=== PATIENT | male | born 1940 | race Caucasian/White ===

== ENCOUNTER 2023-06-01 09:03 | Emergency (ER) | payer BC, SELFPAY ==
[2023-06-01 09:05] VITALS: BP 158/95
--- NOTE | 2023-06-01 09:25 | ED.GENMED ---
History of Present Illness
General
Chief Complaint: Fall
Source: patient
Time Seen by Provider: 06/01/23 09:19
Travel History
Have you had any contact with someone who has COVID-19?: No
Do you have any symptoms of coronavirus? Fever > 100 degrees, chills, cough, shortness of breath, sore throat, loss of taste or smell, muscle aches, or headache?: No
History of Present Illness
History of Present Illness:
82-year-old male with past medical history of hypertension hyperlipidemia presenting to the emergency department for evaluation after an accidental trip and fall 4 days ago where he injured on his left upper leg and complaining of mildly improving
pain/discomfort however he states due to the continued nature of symptoms wanted to come to the ER to be further evaluated. Patient denies any other injuries. He notes that he ambulates with a walker due to gait imbalance as well as a history of a
left hip replacement and chronic right knee pain. Denies any head injury, loss consciousness, other extremity related injuries or any other concerns.
Past History
Past History
ED Past Medical History: HTN and Hypercholesterolemia
ED Past Surgical History: Orthopedic (L hip surg), Tonsilectomy and Other (Testicle removed as child)
Social History
Tobacco: Non-smoker
Alcohol: Occasional
Drug: None
Personal:
Living: with family
Employment: Employed
Review of Systems
Review of Systems
All Other Systems: ROS reviewed and negative except as documented in HPI and ROS
Phy Exam
Physical Exam
Physical Exam:
GENERAL: Alert , in no apparent distress, pleasant and well-appearing
EYE: conjunctiva clear
Head: Normocephalic atraumatic
NECK: Supple,
ENT: mmm.
LUNGS: no acute respiratory distress
NEUROLOGICAL: Alert and oriented
SKIN: Warm and dry, skin intact.
MUSCULOSKELETAL: Left lower extremity: No obvious deformity, erythema, edema, ecchymosis, abrasions or lacerations. There is mild tenderness along the proximal and lateral aspect of the thigh but patient allows for full active and passive range of
motion with minimal discomfort. Neurovascularly intact. Remainder of extremities are within normal limits.
PSYCH: Normal and appropriate interaction.
Scores
Heart Failure Risk
Heart Failure Risk Score: Not Applicable
Heart Score for Chest Pain Patients
STEMI patient?: Not applicable
Withdrawal Assessment of Alcohol
Withdrawal Assessment Completed?: Not applicable
Course
Orders/Labs/Results
Orders:
Orders
06/01/23 09:23
CR Hip - LT w/wo Pel 2-3 Vw* Urgent
Comment:
Reason For Exam: fall, pain
Include a pelvis x-ray?: Yes
Vital Signs
Initial and Last Documented VS:
Initial Vital Signs
Temp Pulse Resp BP Pulse Ox
98.6 F 91 20 158/95 98
06/01/23 09:05 06/01/23 09:05 06/01/23 09:05 06/01/23 09:05 06/01/23 09:05
Last Documented Vital Signs
Temp Pulse Resp BP Pulse Ox
98.6 F 91 20 158/95 98
06/01/23 09:05 06/01/23 09:05 06/01/23 09:05 06/01/23 09:05 06/01/23 09:05
MDM/Problems Addressed
Differential Diagnosis Includes:
Contusion, sprain, pelvic fracture, given patient has been ambulatory over the 4 days I do not have concern for femur fracture
MDM/Problems Addressed:
82-year-old male presenting to the emergency department for evaluation after an accidental trip and fall resulting in injury to the left hip. Patient has been ambulatory with his walker since then but notes continued discomfort. Will obtain x-ray
to evaluate for possible fracture. Patient is declining anything for pain at this time. Anticipate discharge home following imaging
*Radiology
Radiology exam reviewed: preliminary read by ED provider (Negative for any fracture or complication with prosthesis)
*Pulse Oximetry
Patient hypoxic: no
*Critical Care Note
Total Time (30-74mins, 75-104mins- exclusive of procedures): Not Applicable
Patient Management
Escalation/DeEscalation of care consider admission/obs:
Patient's x-ray unremarkable. Stable for discharge home and outpatient management. Aware of return precautions.
ED Attending Note
-
Portions of this chart may have been created with voice recognition software.� Occasional wrong word or��sound alike� substitutions may have occurred due to the inherent limitations of voice recognition software.
Discharge Plan
Departure
Patient Disposition: Home (Routine Discharge)
Date of Disposition: 06/01/23
Time of Disposition: :
Patient with high blood pressure during this ER visit?: Yes
Discharge Problem:
Accidental fall, Hip pain, left
Instructions: Hip Pain (DC)
Prescriptions:
No Action
atorvastatin 10 MG tablet
10 mg PO QPM
lisinopril 20 MG tablet
20 mg PO DAILY
meloxicam 7.5 MG tablet
15 mg PO PRN PRN (Reason: pain)
aspirin 81 MG tablet,chewable
81 mg PO DAILY
meclizine 25 MG tablet
25 mg PO Q8HPRN PRN (Reason: nausea or vertigo) Qty: 10 0RF
prednisone 50 MG tablet
50 mg PO DAILY Qty: 7 0RF
oseltamivir 75 MG capsule
75 mg PO BID Qty: 9 0RF
albuterol sulfate [Proventil HFA] 90 MCG/PUFF HFA aerosol inhaler
2 puff inhalation Q4HPRN PRN (Reason: shortness of breath/cough) Qty: 1 0RF
codeine-guaifenesin [Guaiatussin AC] 10 ML liquid
10 ml PO Q6HPRN PRN (Reason: cough) Qty: 100 0RF
meclizine 25 mg tablet
25 mg PO TID PRN (Reason: dizziness) Qty: 12 0RF
Referrals:
Adiel Felder MD [Active] - (Ortho - Call for appointment as needed)
Noam Tse MD [Family Provider] -
Interventions
Interventions:
*Risk Screen - Suicide Last Done: 06/01/23 10:10
*General Assessment Last Done: 06/01/23 10:10
*Neglect/Abuse Screening Last Done: 06/01/23 10:10
ED- Fall Risk Assessment Last Done: 06/01/23 10:41
*ED COVID-19 Vaccine History Last Done: 06/01/23 09:05
*Nursing Disposition Last Done: 06/01/23 10:41
ED-Musculoskeletal Assessment Last Done: 06/01/23 10:10
ED- Neurological Assessment Last Done: 06/01/23 10:10
ED-Skin Assessment Last Done: 06/01/23 10:10
Discharge Date and Time
Discharge Date/Time: 06/01/23 10:41
== END 2023-06-01 10:41 | disposition home or self-care (01) ==
LOC: EMR 09:03
PROVIDERS: EMERGENCY PHYSICIAN Emergency Medicine; FAMILY PHYSICIAN Internal Medicine Geriatric Medicine
DX: M25.552 Pain in left hip (principal); W01.0XXA Fall on same level from slipping, tripping and stumbling without subsequent striking against object, initial encounter; I10 Essential (primary) hypertension; E78.00 Pure hypercholesterolemia, unspecified
CPT/HCPCS: 99283; 73502

== ENCOUNTER 2023-09-27 09:56 | Inpatient (IN) | payer MEDICARE, BC, SELFPAY ==
[2023-09-27] VITALS (22 sets, daily range): BP systolic 110–233; BP diastolic 83–210; BMI 36.9; BMI 36.0
--- NOTE | 2023-09-27 08:26 | ED.GENMED ---
History of Present Illness
<Malik Palma Jr., PA-C - Last Filed: 09/27/23 09:58>
General
Chief Complaint: Breathing Problem
Source: patient and spouse
Exam Limitations: none
Time Seen by Provider: 09/27/23 08:17
Nursing documentation reviewed up to this point in time: agreed with
Travel History
Have you had any contact with someone who has COVID-19?: No
Do you have any symptoms of coronavirus? Fever > 100 degrees, chills, cough, shortness of breath, sore throat, loss of taste or smell, muscle aches, or headache?: No
History of Present Illness
History of Present Illness:
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 Denies any
specific pain but is having trouble catching his breath. Denies any history of breathing issues lung issues or heart issues. Has had chronic swelling to the left lower extremity from his neuropathy but denies any history of blood clots any recent
trauma surgery immobilization. No known cancer history
Past History
<Malik Palma Jr., PA-C - Last Filed: 09/27/23 09:58>
Past History
ED Past Medical History: HTN and Hypercholesterolemia
ED Past Surgical History: Orthopedic (L hip surg), Tonsilectomy and Other (Testicle removed as child)
Social History
Tobacco: Non-smoker
Alcohol: Occasional
Drug: None
Personal:
Living: with family
Employment: Employed
Review of Systems
<Malik Palma Jr., PA-C - Last Filed: 09/27/23 09:58>
Review of Systems
Allergies reviewed?: Yes
All Other Systems: ROS reviewed and negative except as documented in HPI and ROS
Phy Exam
<Malik Palma Jr., PA-C - Last Filed: 09/27/23 09:58>
Physical Exam
Physical Exam:
GENERAL: Alert , in no apparent distress
EYE: pupils equal and reactive
NECK: Supple, no significant adenopathy.
ENT: o/p clr, mmm.
CARDIAC: Regular rate and rhythm .
LUNGS: C slightly diminished lung sounds to the left side but otherwise good air movement on the right side no adventitious sounds
ABDOMEN: Soft, without focal tenderness, no r/g, no cvat
NEUROLOGICAL: Alert and oriented, no focal neuro deficits
SKIN: Warm and dry, skin intact.
MUSCULOSKELETAL: No edema, well perfused.
PSYCH: Normal and appropriate interaction.
Scores
<Malik Palma Jr., PA-C - Last Filed: 09/27/23 09:58>
Heart Failure Risk
Heart Failure Risk Score: Not Applicable
Course
<Malik Palma Jr., PA-C - Last Filed: 09/27/23 09:58>
Orders/Labs/Results
Orders:
Orders
09/27/23 08:15
ECG [Electrocardiogram (*1)] Urgent
Reason for Study: Tachycardia
EKG- Treatment ONCE
09/27/23 08:21
CT Chest Pe Study Urgent
Comment:
Reason For Exam: sob left leg swelling
CR Chest Portable - 1 View Stat
Comment:
Reason For Exam: sob, hypoxemic
Reason Study Needs to be Portable: Patient Unstable
09/27/23 08:22
EKG- Treatment ONCE
09/27/23 08:27
Complete Blood Count/With Diff Urgent
Comprehensive Metabolic Panel Urgent
NT-proBNP Urgent
PTT Urgent
Prothrombin Time Urgent
Troponin I Urgent
09/27/23 08:56
Heparin 9,300 units IV NOW STA
Nursing to Place Non Medication Order As Directed
Physician Order: PTT 6 hours after initial start of Heparin infusion
Above order entered?: Yes
09/27/23 09:00
Heparin [id number] Units/250 ml 25,000 units in 250 ml IV PER PROTOCOL
Weight to be used for heparin protocol in kilograms (kg):: 116.8
Protocol:: DVT/PE
PTT Goal Range to be used:: PTT 73 to 111 seconds
Order type:: Initial
INITIAL Infusion Dose (UNITS/KG/hr) & then follow protocol:: 18 units/kg/hr
Infusion Dose in UNITS/hr & then follow protocol (UNITS/hr):: 2,000
INFUSION RATE in mL/hr & then follow protocol (mL/hr):: 20
For DVT/PE algorithm, re-bolus for low PTT?: Yes
PTT less than or equal to 64 seconds:: Re-bolus 80 units/kg (max 10,000units). Increase by 500 units/hr
(+ 5mL/hr)
PTT 64.1 to 72.9 seconds:: Re-bolus 40 units/kg (max 5,000 units). Increase by 200 units/hr
(+ 2mL/hr)
PTT 73 to 111 seconds:: Target Range. No change in rate.
PTT 111.1 to 130.9 seconds:: Decrease rate by 200 units/hr (- 2 mL/hr)
PTT 131 to 199.9 seconds:: HOLD for 1 hr. Then decrease by 400 units/hr (- 4mL/hr)
PTT greater than or equal to 200 seconds:: HOLD for 2 hrs & Notify Provider. Then decrease by 500 units/hr
(- 5mL/hr)
Lab follow-up:: Each change, PTT q6h until 2 consecutive are therapeutic. Then
PTT daily.
09/27/23 09:01
Heparin 4,700 units IV PRN PRN
Heparin 9,300 units IV PRN PRN
09/27/23 09:39
Admit/Transfer Patient As Directed
Co-Sign Provider:
Level of Care: Inpatient admission
Assign to:: ICU
Physician / Group: Dr. Edouard Issa/Hospitalists
Diagnosis: Pulmonary Embolism
Reason for Hospitalization: Pulmonary Embolism, Hypoxia
Expected length of stay greater than two midnights?: Yes
ELOS- Estimated Length of Stay in days: 3
I certify the patient meets the requirements for IP care: Yes
09/27/23 09:41
Code Status As Directed
Resuscitation Status: Full Code
09/27/23 09:46
US Periph Venous LOWER Ext Andrew Urgent
Comment:
Reason For Exam: DVT?
09/27/23 09:48
Echo 2D MMode Color/Doppler Routine
Reason for Study: Saddle Pulmonary Embolism
09/27/23 09:51
IRAD CONSULT Routine
Consulting Provider: Jose D Zheng
Was physician already notified: Yes
Reason for Consult/Procedure: Saddle Pulmonary Embolism
Acknowledgement that appropriate orders are entered: Yes
09/27/23 09:52
Manager Business Management Consult Routine
Consulting Provider: Negra William
Was physician already notified: Yes
Reason for consult: Saddle Pulmonary Embolism
09/27/23 15:00
PTT Urgent
Abnormal Lab Results
09/27/23
08:27
WBC 11.1 H 10^3/uL
(4.8-10.8)
MCV 96.3 H fL
(80.0-94.0)
MCH 33.6 H pg
(27.0-31.0)
Abs Immat Gran (auto) 0.1 H 10^3/uL
(0-0.05)
Absolute Neuts (auto) 8.3 H 10^3/uL
(1.4-6.5)
Absolute Monos (auto) 0.9 H 10^3/uL
(0.1-0.6)
Immature Gran % 0.6 H %
(0-0.5)
Lymphocytes % 16.1 L %
(20.5-51.1)
Creatinine 0.6 L mg/dL
(0.7-1.3)
Glucose 161 H mg/dl
(70-99)
Total Bilirubin 1.6 H mg/dl
(0.2-1.3)
Alkaline Phosphatase 152 H U/L
(38-126)
Troponin I 0.101 H* ng/ml
09/27/23 08:27
09/27/23 08:27
Vital Signs
Initial and Last Documented VS:
Initial Vital Signs
Temp Pulse Resp BP Pulse Ox
98.0 F 165 28 171/124 85
09/27/23 08:12 09/27/23 08:12 09/27/23 08:12 09/27/23 08:12 09/27/23 08:12
Last Documented Vital Signs
Temp Pulse Resp BP Pulse Ox
98.0 F 119 15 136/102 95
09/27/23 08:12 09/27/23 09:30 09/27/23 09:30 09/27/23 09:30 09/27/23 09:30
<Domenico Snow MD - Last Filed: 09/27/23 09:09>
Orders/Labs/Results
Orders:
Orders
09/27/23 08:15
ECG [Electrocardiogram (*1)] Urgent
Reason for Study: Tachycardia
EKG- Treatment ONCE
09/27/23 08:21
CT Chest Pe Study Urgent
Comment:
Reason For Exam: sob left leg swelling
CR Chest Portable - 1 View Stat
Comment:
Reason For Exam: sob, hypoxemic
Reason Study Needs to be Portable: Patient Unstable
09/27/23 08:22
EKG- Treatment ONCE
09/27/23 08:27
Complete Blood Count/With Diff Urgent
Comprehensive Metabolic Panel Urgent
NT-proBNP Urgent
PTT Urgent
Prothrombin Time Urgent
Troponin I Urgent
09/27/23 08:56
Heparin 9,300 units IV NOW STA
Nursing to Place Non Medication Order As Directed
Physician Order: PTT 6 hours after initial start of Heparin infusion
Above order entered?: Yes
09/27/23 09:00
Heparin [id number] Units/250 ml 25,000 units in 250 ml IV PER PROTOCOL
Weight to be used for heparin protocol in kilograms (kg):: 116.8
Protocol:: DVT/PE
PTT Goal Range to be used:: PTT 73 to 111 seconds
Order type:: Initial
INITIAL Infusion Dose (UNITS/KG/hr) & then follow protocol:: 18 units/kg/hr
Infusion Dose in UNITS/hr & then follow protocol (UNITS/hr):: 2,000
INFUSION RATE in mL/hr & then follow protocol (mL/hr):: 20
For DVT/PE algorithm, re-bolus for low PTT?: Yes
PTT less than or equal to 64 seconds:: Re-bolus 80 units/kg (max 10,000units). Increase by 500 units/hr
(+ 5mL/hr)
PTT 64.1 to 72.9 seconds:: Re-bolus 40 units/kg (max 5,000 units). Increase by 200 units/hr
(+ 2mL/hr)
PTT 73 to 111 seconds:: Target Range. No change in rate.
PTT 111.1 to 130.9 seconds:: Decrease rate by 200 units/hr (- 2 mL/hr)
PTT 131 to 199.9 seconds:: HOLD for 1 hr. Then decrease by 400 units/hr (- 4mL/hr)
PTT greater than or equal to 200 seconds:: HOLD for 2 hrs & Notify Provider. Then decrease by 500 units/hr
(- 5mL/hr)
Lab follow-up:: Each change, PTT q6h until 2 consecutive are therapeutic. Then
PTT daily.
09/27/23 09:01
Heparin 4,700 units IV PRN PRN
Heparin 9,300 units IV PRN PRN
09/27/23 09:39
Admit/Transfer Patient As Directed
Co-Sign Provider:
Level of Care: Inpatient admission
Assign to:: ICU
Physician / Group: Dr. Edouard Issa/Hospitalists
Diagnosis: Pulmonary Embolism
Reason for Hospitalization: Pulmonary Embolism, Hypoxia
Expected length of stay greater than two midnights?: Yes
ELOS- Estimated Length of Stay in days: 3
I certify the patient meets the requirements for IP care: Yes
09/27/23 09:41
Code Status As Directed
Resuscitation Status: Full Code
09/27/23 09:46
US Periph Venous LOWER Ext Andrew Urgent
Comment:
Reason For Exam: DVT?
09/27/23 09:48
Echo 2D MMode Color/Doppler Routine
Reason for Study: Saddle Pulmonary Embolism
09/27/23 09:51
IRAD CONSULT Routine
Consulting Provider: Jose D Zheng
Was physician already notified: Yes
Reason for Consult/Procedure: Saddle Pulmonary Embolism
Acknowledgement that appropriate orders are entered: Yes
09/27/23 09:52
Manager Business Management Consult Routine
Consulting Provider: Negra William
Was physician already notified: Yes
Reason for consult: Saddle Pulmonary Embolism
09/27/23 15:00
PTT Urgent
Abnormal Lab Results
09/27/23
08:27
WBC 11.1 H 10^3/uL
(4.8-10.8)
MCV 96.3 H fL
(80.0-94.0)
MCH 33.6 H pg
(27.0-31.0)
Abs Immat Gran (auto) 0.1 H 10^3/uL
(0-0.05)
Absolute Neuts (auto) 8.3 H 10^3/uL
(1.4-6.5)
Absolute Monos (auto) 0.9 H 10^3/uL
(0.1-0.6)
Immature Gran % 0.6 H %
(0-0.5)
Lymphocytes % 16.1 L %
(20.5-51.1)
Creatinine 0.6 L mg/dL
(0.7-1.3)
Glucose 161 H mg/dl
(70-99)
Total Bilirubin 1.6 H mg/dl
(0.2-1.3)
Alkaline Phosphatase 152 H U/L
(38-126)
Troponin I 0.101 H* ng/ml
09/27/23 08:27
09/27/23 08:27
Vital Signs
Initial and Last Documented VS:
Initial Vital Signs
Temp Pulse Resp BP Pulse Ox
98.0 F 165 28 171/124 85
09/27/23 08:12 09/27/23 08:12 09/27/23 08:12 09/27/23 08:12 09/27/23 08:12
Last Documented Vital Signs
Temp Pulse Resp BP Pulse Ox
98.0 F 119 15 136/102 95
09/27/23 08:12 09/27/23 09:30 09/27/23 09:30 09/27/23 09:30 09/27/23 09:30
<Malik Palma Jr., PA-C - Last Filed: 09/27/23 09:58>
MDM/Problems Addressed
MDM/Problems Addressed:
82-year-old male presenting to the emergency department today for concerns of abrupt onset shortness of breath 2 hours ago at home. Denies any chest pain or additional symptoms otherwise. Otherwise felt well this morning. Heart rate elevated upon
arrival but sinus tachycardia. Blood pressure elevated to 171/124. Patient with no additional symptoms otherwise on exam able to speak in full sentences when using the nasal cannula oxygen. Nasal cannula improving pulse ox to the mid 90s was in
the 80s without oxygen. Patient does have some swelling to the left leg where he has chronic neuropathy. Concern for PE considering the patient's description of symptoms and exam. Chest x-ray was normal and EKG without obvious ischemic or cardiac
diagnosis patient was sent to CT scan for PE study that showed saddle embolus. A PERT alert was called immediately and discussed pulmonary within the a few minutes. Case then discussed with interventional radiology the possibility of intervention.
Otherwise patient remained stable throughout ER stay admitted to ICU. Patient started on heparin as well.
<Malik Palma Jr., PA-C - Last Filed: 09/27/23 09:58>
*Critical Care Note
Total Time (30-74mins, 75-104mins- exclusive of procedures): Not Applicable
ED Attending Note
<Malik Palma Jr., PA-C - Last Filed: 09/27/23 09:58>
-
Portions of this chart may have been created with voice recognition software.� Occasional wrong word or��sound alike� substitutions may have occurred due to the inherent limitations of voice recognition software.
<Domenico Snow MD - Last Filed: 09/27/23 09:09>
ED Attending Note
Patient seen and examined by attending physician: Yes
ED Attending Note:
I have seen and evaluated the patient with a [id number] encounter. I have spoken to the advance practicer provider and involved in the medical history, the physical exam, medical decision making.
Evaluation and management service: agree unless noted differently below.
Results interpretation: agree unless noted differently below.
Focused HPI: 82-year-old male with a past medical history of hypertension, hyperlipidemia who presents to the emergency room for evaluation of shortness of breath. Patient reports he was drinking his coffee this morning and when he stood up he had
acute onset of shortness of breath. He denies any chest pain. Denies any nausea, vomiting, diaphoresis. He denies any other complaints. He says he has never had this before. Denies any known cardiac history.
Physical exam: Awake and alert, oriented. Mildly hypertensive, tachycardic heart rates 130s to 160s. Tachypneic, hypoxic to 85% requiring 6 L nasal cannula to maintain saturations above 90. Normothermic. Breath sounds slightly diminished at the
left lung base. Lungs otherwise clear to auscultation bilaterally. He has some slight discoloration left lower extremity compared to the right only trace edema in the legs. No cardiac rubs gallops or murmurs appreciated although markedly
tachycardic.
Medical Decision Making: Patient presents with acute onset dyspnea this morning�presents severely tachycardic, tachypneic, hypoxic. Presentation concerning for acute pulmonary embolism. We performed a stat portable chest x-ray which was negative
for any acute pathology on my review. EKG shows sinus tachycardia. Sent for a stat CTA of the chest to rule out PE and this was positive for saddle embolism with heart strain. PERT alert called. Started on heparin. Discussed with pulmonology
and IR for thrombolysis. Discussed with hospitalist for admission.
Discharge Plan
Departure
Patient Disposition: Admit
Date of Disposition: 09/27/23
Time of Disposition: 09:20
Admit to: ICU
Admit to doctor: Maegan
Presentation/result/management discussed w/ accepting MD/DO: Hospitalist
Patient with high blood pressure during this ER visit?: Yes
Condition: Fair
Covid-19: Not Applicable
Discharge Problem:
Acute pulmonary embolism, Acute hypoxic respiratory failure
Prescriptions:
No Action
lisinopril 20 MG tablet
20 mg PO DAILY
aspirin 81 MG tablet,chewable
81 mg PO DAILY
atorvastatin [Lipitor] 40 mg Tablet
40 mg PO DAILY
garlic 300 mg Capsule
300 mg PO DAILY
meloxicam [Mobic] 15 mg Tablet
15 mg PO DAILY
cyanocobalamin (vitamin B-12) 1,000 mcg Tablet
1,000 mcg PO DAILY
Theragen Tablet
1 tab PO DAILY
coQ10 (ubiquinol) 100 mg Capsule
100 mg PO DAILY
Referrals:
Noam Tse MD [Family Provider] -
Interventions
Interventions:
*Risk Screen - Suicide Last Done: 09/27/23 08:23
*General Assessment Last Done: 09/27/23 08:23
*Neglect/Abuse Screening Last Done: 09/27/23 08:23
ED- Fall Risk Assessment Last Done: 09/27/23 08:23
*ED COVID-19 Vaccine History Last Done: 09/27/23 08:12
ED- Cardiac Assessment Last Done: 09/27/23 08:23
ED- Pulmonary Assessment Last Done: 09/27/23 08:23
Discharge Date and Time
Print Language: TURKISH
--- NOTE | 2023-09-27 08:39 | EDRN ---
the pt is currently resting in stretcher in the lowest position, side rails up x2, HOB elevated, call cintron within reach, the pt is currently NST in the 150's, the pt is currently on 6L NC which the pt was placed on when he arrived to ED Bed #12 from
triage, the pts p02 on 6L NC is currently 93%, Carmelo JONES and Dr. Snow currently at the pts bedside
[2023-09-27 08:41] LABS: % Basophils 0.4 % (0-2); % Eosinophils 0.8 % (0-6); % Immature Granulocytes 0.6 % (0-0.5); % Lymphocytes 16.1 % (20.5-51.1); % Monocytes 7.7 % (1.7-9.3); % Neutrophils 74.4 % (42.2-75.2); Absolute Eosinophils 0.1 10^3/uL (0-0.7); Absolute Immature Granulocytes 0.1 10^3/uL (0-0.05); Absolute Lymphocytes 1.8 10^3/uL (1.2-3.4); Absolute Monocytes 0.9 10^3/uL (0.1-0.6); Absolute Neutrophils 8.3 10^3/uL (1.4-6.5); Hematocrit 49.9 % (39.0-52.0); Hemoglobin 17.4 g/dL (13.0-18.0); Mean Corp Hgb Conc. 34.9 g/dL (33.0-37.0); Mean Corpuscular Hgb 33.6 pg (27.0-31.0); Mean Corpuscular Volume 96.3 fL (80.0-94.0); Mean Platelet Volume 10.3 fL (7.4-10.4); Nucleated Red Blood Cells % 0 % (-); Platelet Count 148 10^3/uL (130-400); Red Blood Cell Count 5.18 10^6/uL (4.70-6.10); Red Cell Dist. Width 13.7 % (11.5-14.5); White Blood Cell Count 11.1 10^3/uL (4.8-10.8)
[2023-09-27 08:48] LABS: ALT (SGPT) 36 U/L (0-50); AST (SGOT) 38 U/L (17-59); Albumin 4.4 g/dl (3.5-5.0); Alkaline Phosphatase 152 U/L (38-126); Blood Urea Nitrogen 20 mg/dl (9-20); Calcium 9.3 mg/dl (8.4-10.2); Carbon Dioxide 24 mmol/L (22-30); Chloride 103 mmol/L (98-107); Estimated Creatinine Clearance 122 ml/min; Glucose 161 mg/dl (70-99); Potassium 4.4 mmol/L (3.5-5.1); Sodium 137 mmol/L (135-145); Total Bilirubin 1.6 mg/dl (0.2-1.3); Total Protein 7.4 g/dl (6.3-8.2); eGFR > 60.00
[2023-09-27 09:03] LABS: NT-proBNP 128 pg/ml; Troponin I 0.101 ng/ml
[2023-09-27] MEDS: HEPARIN 9300 UNITS IV (09:04)
[2023-09-27] MEDS: HEPARIN 25000 UNITS/250 ML IV (09:06)
--- NOTE | 2023-09-27 09:09 | EDRN ---
troponin came back elevated at 0.101, this RN notified the provider Dr. Snow, this RN with the assistance of second RN adam Bergman Heparin gtt at 2000 units/hour, the pt is resting in stretcher in the lowest position, side rails up x2, call cintron
within reach, HOB elevated, sinus tachycardic in the 120's, the pt is currently still on 6L NC and sp02 is 96%, pt RR now 17bpm, will continue to monitor the pt closely
[2023-09-27 09:13] LABS: APTT 27.3 Sec (23.4-35.0); INR 1.07; PT 13.7 Sec (11.4-14.6)
--- NOTE | 2023-09-27 09:13 | ED TECH ---
A PERT ALERT was called #[id number]# @08:56 AM Per {[facility]}.
--- NOTE | 2023-09-27 09:46 | HPS.HSE ---
Family Physician
-
Family Physician: Noam Tse
Chief Complaint
-
Shortness of breath
History of Present Illness
82 y/o male with past medical history of hypertension, hyperlipidemia, vitamin B12 deficiency and left lower extremity neuropathy presented with shortness of breath since around 6 AM this morning. Patient said he ate breakfast and was watching TV
and around that time developed shortness of breath. He denied any fever, chest pain or cramping in his legs. He denied any other symptoms. This is the first time he has had shortness of breath like this.
Medical History
Past Medical History
Past Medical History: Reports Other (As per HPI above)
Past Surgical History: Reports Orthopedic (Carpal Tunnel Syndrome, Left Hip Replacement, Testicle Removal) and Tonsilectomy
Social History
Tobacco: Non-smoker
Alcohol: Occasional
Drug: None
Family History
Family History: Not pertinent
Allergies / Home Medications
Allergies reflects when Allergies were last updated in [employer].
Home Medications with original date entered in [employer]
Allergy/Medication List:
Allergies
Allergy/AdvReac Type Severity Reaction Status Date / Time
NKA - No Known Allergies Allergy Unknown Uncoded 09/27/23 08:14
Home Medications
aspirin 81 mg chewable tablet 81 mg PO DAILY 07/10/16
lisinopril 20 mg tablet 20 mg PO DAILY 07/10/16
atorvastatin 40 mg tablet (Lipitor) 40 mg PO DAILY 09/27/23
coQ10 (ubiquinol) 100 mg capsule 100 mg PO DAILY 09/27/23
cyanocobalamin (vitamin B-12) 1,000 mcg tablet 1,000 mcg PO DAILY 09/27/23
garlic 300 mg capsule 300 mg PO DAILY 09/27/23
meloxicam 15 mg tablet 15 mg PO DAILY 09/27/23
therapeutic multivitamin 1 tab PO DAILY 09/27/23
Review of Systems
-
A 12 point ROS was completed and negative except as noted: Yes
Physical Exam
Vital Signs
Vital Signs
Temp Pulse Resp BP Pulse Ox
98.0 F 119 15 136/102 95
09/27/23 08:12 09/27/23 09:30 09/27/23 09:30 09/27/23 09:30 09/27/23 09:30
Physical Exam
General: No Apparent Distress, Comfortable and Conversant
HEENT: NormoCephalic, Moist mucous membranes and Atraumatic
Respiratory: Clear
Cardiac: S1/S2 and Tachycardia
GI: Soft, Non Tender and Normal Bowel Sounds
Musculoskeletal: No Cyanosis and No Edema
Skin: Warm and Dry
Neuro: Awake, Alert and AO x 3
Psych: Calm and Intact Judgment/Insight
Laboratory Results
-
09/27/23 08:27
09/27/23 08:27
Laboratory Results
PT 13.7 Sec (11.4-14.6) 09/27/23 08:27
INR 1.07 09/27/23 08:27
APTT Cancelled 09/27/23 08:56
Total Bilirubin 1.6 mg/dl (0.2-1.3) H 09/27/23 08:27
AST 38 U/L (17-59) 09/27/23 08:27
ALT 36 U/L (0-50) 09/27/23 08:27
Alkaline Phosphatase 152 U/L (38-126) H 09/27/23 08:27
Troponin I 0.101 ng/ml H* 09/27/23 08:27
Impression/Plan
-
Assessment/Plan
Large saddle pulmonary embolus with evidence of right heart strain
Acute Hypoxic Respiratory Failure Secondary to Pulmonary Embolism
-Heparin Drip started in the ER with initial bolus; continue Heparin Drip DVT/PE protocol
-Monitor in ICU
-Continue oxygen supplementation to maintain SpO2 saturations >90%
-IV fluids if becomes hemodynamically unstable
-IR intends to perform thrombectomy today
-Business System Manager on-board, recommendations appreciated
Severe coronary arterial calcification
-Follow-up outpatient
Hypertension
-Patient took his Lisinopril this morning
-Continue home Lisinopril tomorrow
Hyperlipidemia
-Continue home Lipitor 40 mg daily
LLE neuropathy
Vitamin B12 deficiency (as per patient)
-Patient says he sees a neurologist outpatient for this
-Continue home Vitamin B12
DVT PPx: Heparin Drip
Code Status: Full Code
Saddle Pulmonary Embolism needing ICU admission, thrombectomy by interventional radiology, and Heparin Drip, is a high-risk encounter.
--- NOTE | 2023-09-27 10:32 | EDRN ---
IR called this RN for verbal report, verbal report given by this RN
--- NOTE | 2023-09-27 10:35 | EDRN ---
the pt is currently still resting in stretcher in the lowest position, side rails up x2, call cintron within reach, HOB elevated, the pt is currently still sinus tachycardic in the 112-115-'s, last BP 122/83 (96), the pt is currently still on 6L NC
Sp02 95%, the pt is no longer tachypnic and RR currently 16bpm, the pt has no c/o SOB at the moment and no c/o chest pain, will continue to monitor the pt closely
--- NOTE | 2023-09-27 12:16 | CARDSERVLU ---
Echocardiogram with Lumason completed after protocol screening completed. Allergies verified.
Patent IV site: __existing 20P LAC___
IV site flushed with 0.9% NaCl pre and post administration.
Diluted bolus method utilized to enhance visualization of ventricular negrete.
Total volume given: __4.5__ mL
Patient tolerated all procedures well without complications.
--- NOTE | 2023-09-27 12:28 | CON.INTV ---
Consultation
Consultation Request
Date/Time Consultation Requested: 09/27/23
Date/Time Consultation Performed: 09/29/20
Performing Provider: Stewart
Reason for Consultation: ICU
Medical History
-
History of Present Illness:
Patient is an 82-year-old male with previous history of hypertension, hyperlipidemia presenting to ER with shortness of breath since earlier this a.m. he had noticed left lower extremity swelling as well. He does admit to sedentary behavior at
home. Denies long distance traveling, recent surgery. Has never had VTE in the past. On arrival to ER, he was notably hypoxemic, 85% on room air placed on [address] chest demonstrating large saddle PE with evidence of right heart
strain. PERT alert was called, patient appears more comfortable with improving vital signs. Decision made to maintain IV heparin without tPA, observation tonight.
No history of lung disease in past. Never smoker.
Past Medical History
Past Medical History: Other (see list below)
Social History
Tobacco: Non-smoker
Alcohol: None
Drug: None
Family History
Family History: Reviewed & Not Pertinent
Allergies / Home Medications
Allergies
Allergy/AdvReac Type Severity Reaction Status Date / Time
NKA - No Known Allergies Allergy Unknown Uncoded 09/27/23 08:14
Home Medications
�Medication �Instructions �Recorded �Confirmed �Last Taken �Type
aspirin 81 mg chewable tablet 81 mg PO DAILY Blood Clot 07/10/16 09/27/23 09/27/23 History
Prevention/Tx
lisinopril 20 mg tablet 20 mg PO DAILY Blood Pressure 07/10/16 09/27/23 09/27/23 History
atorvastatin 40 mg tablet (Lipitor) 40 mg PO DAILY High Cholesterol 09/27/23 09/27/23 09/27/23 History
coQ10 (ubiquinol) 100 mg capsule 100 mg PO DAILY Supplement 09/27/23 09/27/23 09/26/23 History
cyanocobalamin (vitamin B-12) 1,000 mcg PO DAILY Supplement 09/27/23 09/27/23 09/26/23 History
1,000 mcg tablet
garlic 300 mg capsule 300 mg PO DAILY Supplement 09/27/23 09/27/23 09/26/23 History
meloxicam 15 mg tablet 15 mg PO DAILY Pain 09/27/23 09/27/23 09/27/23 History
therapeutic multivitamin 1 tab PO DAILY Supplement 09/27/23 09/27/23 09/26/23 History
Review of Systems
-
History Source: Patient
All other systems: Negative unless noted
Vitals / Labs / Diagnostic Testing
Vital Signs
Temp Pulse Resp BP Pulse Ox
98.2 F 102 11 122/95 95
09/27/23 10:16 09/27/23 11:30 09/27/23 11:30 09/27/23 11:30 09/27/23 11:30
Lab Data
09/27/23 08:27
09/27/23 08:27
Laboratory Results
09/27/23 09/27/23
08:27 08:56
PT 13.7
INR 1.07
APTT 27.3 Cancelled
Diagnostic Testing:
Physical Exam
-
HEENT: Normocephalic, Anicteric and Moist Mucous Membranes
Cardiovascular: S1/S2 and Regular Rhythm
Respiratory: Clear and Non-Labored Respirations
GI: Soft, Distended (obese) and Non Tender
Neurology: Awake, Alert, Oriented, AO x 3 and No Motor Deficits
Skin: Warm, Dry and Good Color
General: Comfortable and Other (NAD, obese)
Assessment
-
Patient is an 82-year-old male with previous history of hypertension, hyperlipidemia presenting to ER with shortness of breath since earlier this a.m. he had noticed left lower extremity swelling as well. On arrival to ER, he was notably
hypoxemic, 85% on room air placed on [address] chest demonstrating large saddle PE with evidence of right heart strain. PERT alert was called, patient appears more comfortable with improving vital signs. Decision made to maintain IV
heparin without tPA, observation tonight. Admitted to ICU.
Large saddle PE, provoked likely/sedentary behavior
Evidence of RHS with moderate PH
Acute hypoxic respiratory failure
Mild leukocytosis
Left lower extremity swelling
Hyperglycemia
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
Hyperlipidemia
HTN
Arthritis
B/L Carpal tunnel release
Hip replacement(1999)
Tonsillectomy
Cataracts 08/2021
Bilateral S1 TFESI 02/08/2022
LT S1 TFESI NO SED 07.07.2022
LT SI JOINT INJ NO SED 08/03/23
Ambulatory dysfunction with falls at home
Obesity, BMI 36
Plan
No current signs of metabolic encephalopathy or MS changes/following commands
Denies pain at this time.
Pain/sedation: PRN
RASS goals: 0
Ambulatory issues, eventual PT eval
Hemodynamically stable, not requiring pressors.
Cardiac history reviewed-- HTN/HLD
ECHO reviewed indicating evidence of RHS with moderate PH, no baseline test
Hold home meds, resume when able
Trend enzymes
Monitor on telemetry, HR improved since heparin IV started
CT Chest showing large saddle PE, possible LLE DVT as well
PERT called, improving vitals, can hold off on tPA
IR eval noted
Oxygen needs: on 6L, O2 alvin in 80s on arrival
Prior history of lung disease: none, nonsmoker
Does have risk factors for OSAS, would need OP sleep study
Supplemental O2 as indicated to maintain sats > 89%
CXR/CT reviewed
Diet advancement
LFT somewhat elevated, suspect fatty liver
Aspiration precautions, HOB > 30 degrees
GI prophylaxis if indicated for mechanical ventilation >48 hours, prior history of GERD, stress ulcer formation in the critically ill
Creat at baseline, no history of renal disease
Void trials
Follow urine output, critical I/Os
Replete electrolytes as needed
No signs/symptoms suspicious for infectious etiology at this time
Observe off antibiotics for now
Follow fever trend, WBC count
CBC stable, no signs of bleeding or coagulopathy.
DVT prophylaxis as assessed based on risk, including mechanical SCDs
Can transfuse if indicated for Hb <7, plt < 10
No prior h/o diabetes or thyroid disease, hyperglycemia noted
Monitor accuchecks PRN/SS coverage if needed
Check TSH/HbA1c
If doing well, no tPA planned, can transfer patient for further treatment for IMU. We will follow.
Diagnostic Data
Chest X-Ray: 09/27/23- 1. Mild cardiomegaly.
2. Grossly clear lungs.
CT Scan: CTA 09/27/23- 1. Large saddle pulmonary embolus, extending into both main, segmental, and subsegmental pulmonary arteries as detailed above.
2. Evidence of right heart strain. RV: LV ratio measures 1.6.
3. Severe coronary arterial calcification. Please correlate with symptoms of and risk factors for coronary artery disease, with further workup as clinically appropriate.
CT Chest 07/06/19- Thoracic aorta is tortuous, but without evidence for aneurysm. No acute CT findings in the chest. Minimal bibasilar partial atelectasis or scarring. Extensive coronary arterial calcifications.
Echo: 09/27/23- Technically difficult study - Lumason used. Dilated and severely hypokinetic right ventricle with Torres's sign seen in apical views. Moderate tricuspid regurgitation. Estimated PASP 48 mmHg with estimated RA 3 mmHg. Normal LV
size and function. No prior study available for comparison. CT scan showed RV strain as well.
PFT's:
Reports and relevant images were personally reviewed.
-----
Critical care time 77 mins -- this includes review of history, physical exam, medications, hemodynamic/ventilator parameters, laboratory data, imaging and discussion with house staff, pharmacy, respiratory therapy, salvage mechanic, and nursing.
Coordination of team via PERT Alert protocol time included.
--- NOTE | 2023-09-27 13:24 | W.PN.UPDATE ---
Update Note
Progress Note Update
- 82 year old found to have submassive PE, IR consulted for catheter directed therapy
- Presented to ER hypoxic and tachycardic. RV strain on CT with elevated troponin
- CT reviewed. Saddle component with occlusive/nonocclusive clot within the segment and subsegmental arteries
- Pt started on heparin. Says he's feeling better on heparin/O2, non-toxic appearing
- Would not recommend thrombectomy given the more peripheral nature of his clot. Options are continued heparin vs catheter directed thrombolysis with tPA
- Given advanced age, improvement on heparin, rec continued heparin overnight. If continues to improve do not think he needs intervention. Will follow.
[2023-09-27 15:53] LABS: TSH 4.57 uIU/ml (0.47-4.68)
[2023-09-27 15:54] LABS: APTT > 200 Sec (23.4-35.0)
--- NOTE | 2023-09-27 16:48 | PTCARENOTE ---
Received patient on admission from ED via stretcher with heparin drip infusing at 2,000 units/hr. Patient able to transfer self from bed to stretcher but was ALY. Patient received with 6l n/c; POx decreased to 88% on transfer then recovered.
Currently 94-95% on 6L n/c but dyspneic on minimal exertion. PTT drawn in ED prior to arrival and resulted >200. Confirmed with ED RN that blood was not drawn from line/arm with heparin infusing. Infusion on hold for 2hrs per protocol with restart
to be decreased by 500 units/hr, and notified Dr Issa via tiger text. BP 145/102 on arrival. Patient confirmed he took his lisinopril this morning. Dr Abbasi made aware; instructed to watch bp for now. Current BP 138/99. See worklist for full
assessment, vital signs, admission questions and heparin titration.
[2023-09-27 17:01] LABS: Troponin I 0.497 ng/ml
--- NOTE | 2023-09-27 20:24 | PTCARENOTE ---
Received pt from [facility]. Pt is AAOx3. NSR on the monitor, trace LE edema. On 6L NC O2 sat 94%, lungs clear, ALY/ tachypneic. Heparin gtt infusing @ 1500 unit/hr. Mouth care provided. Pt is laying comfortable in bed with call cintron in reach.
[2023-09-27 23:23] LABS: APTT 76.6 Sec (23.4-35.0)
[2023-09-28] VITALS (15 sets, daily range): BP systolic 117–176; BP diastolic 75–115
[2023-09-28 00:01] LABS: Troponin I 0.326 ng/ml
[2023-09-28] MEDS: HEPARIN 25000 UNITS/250 ML IV ×2 (01:28→18:05)
[2023-09-28 04:46] LABS: % Basophils 0.5 % (0-2); % Eosinophils 1.2 % (0-6); % Immature Granulocytes 0.7 % (0-0.5); % Lymphocytes 24.1 % (20.5-51.1); % Monocytes 8.1 % (1.7-9.3); % Neutrophils 65.4 % (42.2-75.2); Absolute Basophils 0.1 10^3/uL (0-0.2); Absolute Eosinophils 0.1 10^3/uL (0-0.7); Absolute Immature Granulocytes 0.1 10^3/uL (0-0.05); Absolute Lymphocytes 2.5 10^3/uL (1.2-3.4); Absolute Monocytes 0.8 10^3/uL (0.1-0.6); Absolute Neutrophils 6.7 10^3/uL (1.4-6.5); Hematocrit 47.5 % (39.0-52.0); Hemoglobin 16.4 g/dL (13.0-18.0); Mean Corp Hgb Conc. 34.5 g/dL (33.0-37.0); Mean Corpuscular Hgb 33.5 pg (27.0-31.0); Mean Corpuscular Volume 96.9 fL (80.0-94.0); Mean Platelet Volume 10.3 fL (7.4-10.4); Nucleated Red Blood Cells % 0 % (-); Platelet Count 145 10^3/uL (130-400); Red Cell Dist. Width 13.9 % (11.5-14.5); White Blood Cell Count 10.2 10^3/uL (4.8-10.8)
[2023-09-28 04:55] LABS: APTT 80.7 Sec (23.4-35.0)
[2023-09-28 05:13] LABS: Troponin I 0.229 ng/ml
[2023-09-28 05:17] LABS: Blood Urea Nitrogen 18 mg/dl (9-20); Calcium 8.8 mg/dl (8.4-10.2); Carbon Dioxide 26 mmol/L (22-30); Chloride 104 mmol/L (98-107); Estimated Creatinine Clearance 120 ml/min; Glucose 102 mg/dl (70-99); Potassium 4.4 mmol/L (3.5-5.1); Sodium 135 mmol/L (135-145); eGFR > 60.00
[2023-09-28] MEDS: ZESTRIL 20 MG PO (07:51)
[2023-09-28] MEDS: VITAMIN B-12 1000 MCG PO (07:51)
[2023-09-28] MEDS: MOBIC 15 MG PO (07:52)
[2023-09-28] MEDS: LOW STRENGTH ASPIRIN 81 MG PO (07:52)
[2023-09-28] MEDS: LIPITOR 40 MG PO (07:52)
[2023-09-28] MEDS: THERAGRAN 1 TABLET PO (07:52)
--- NOTE | 2023-09-28 09:26 | CM ---
Patient with Dx Large saddle pulmonary embolus. O2 6L. Heparin gtt.
Attempted to speak with patient who was unavailable.
Spoke with patient's Mlagorzata;
the patient resides with his in a 1 story house with 3 steps at entrance through garage.
The patient has been independent in ADLs and ambulation mostly using his RW, sometimes his SPC.
The patient still drives.
He had a fall 1-2 months ago and is currently going to outpatient PT.
DME - RW, SPC, w/c
No prior VN or SNF.
PCP - Noam Tse
Pharmacy - [facility]
Message to Dr Issa requesting PT/OT Evals due to Hx recent fall.
CM Consult: Eliquis pricing
The cost is $86.30/month at [facility].
Information relayed to patient's who is ok with the cost.
Informed will provide Free Month Eliquis Card at the bedside.
Plan issue Free Month Eliquis Card.
Plan follow up after seen by PT/OT.
[2023-09-28 09:36] LABS: Glycohemoglobin (HgbA1c) 6.2 % (4.0-5.6)
--- NOTE | 2023-09-28 09:37 | W.PN.UPDATE ---
Update Note
Progress Note Update
82 year old found to have submassive PE on imaging yesterdayin ER, IR consulted for catheter directed therapy
- Presented to ER hypoxic and tachycardic. RV strain on CT with elevated troponin. Pulse is stable in the 70s
- CT reviewed. Saddle component with occlusive/nonocclusive clot within the segment and subsegmental arteries
- Pt started on heparin. He continues to report improvement. He is now 95% on 4 L O2
- Would not recommend thrombectomy given the more peripheral nature of his clot. Continue heparin at this time. If symptoms worsen can consider catheter directed thrombolysis with tPA at that time
- Given advanced age, improvement on heparin, rec continued heparin. If continues to improve do not think he needs intervention. Will follow.
--- NOTE | 2023-09-28 11:57 | PTCARENOTE ---
Assumed care of patient at beginning of this shift from previous RN with O2 6l n/c maintained. Patient continues with tachypnea and dyspnea with very minimal exertion. Heparin infusing at 1500 units/hr; PTT therapeutic x2. He was requesting to walk
into the bathroom. This nurse discussed with hospitalist who preferred to wait for patient to ambulate to BR until seen by pulmonary. Patient updated. Also informed hospitalist that BP continues to be elevated despite lisinopril. See worklist for
full assessment, interventions and vital signs; see MAR for med administration.
--- NOTE | 2023-09-28 12:45 | W.PN.PUL3 ---
Today's Communication / Plan
-
Systemic AC - can transition to Eliquis after being on parentera AC x 48 hrs
Ok to walk to bathroom and get up OOB but no strenuous activity and he needs to be monitored/assisted as he is a fall risk and uses a walker to ambulate as it is, and he is now on a heparin gtt
PT/OT
Outpatient follow-up with hematology for hypercoagulable workup
He will need repeat transthoracic echo in 4-6 weeks to follow-up cor pulmonale changes to resolution
Pulmonary service will continue to follow along while he remains inpatient
Assessment
-
Patient is an 82-year-old male with previous history of hypertension, hyperlipidemia presenting to ER with shortness of breath since earlier this a.m. he had noticed left lower extremity swelling as well. On arrival to ER, he was notably
hypoxemic, 85% on room air placed on [address] chest demonstrating large saddle PE with evidence of right heart strain. PERT alert was called, patient appears more comfortable with improving vital signs. Decision made to maintain IV
heparin without tPA, observation tonight. Admitted to ICU.
Impression:
Submassive saddle PE with cor pulmonale, provoked likely/sedentary behavior
Evidence of RHS with moderate PH
Acute hypoxic respiratory failure
Mild leukocytosis
Left lower extremity distal DVT (peroneal and PT veins)
Hyperglycemia
Severe consultation and multiple coronary arteries seen on CTA chest, involving LM, LAD, LCx and right sided coronary arteries
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
Hyperlipidemia
HTN
Arthritis
B/L Carpal tunnel release
Hip replacement(1999)
Tonsillectomy
Cataracts 08/2021
Bilateral S1 TFESI 02/08/2022
LT S1 TFESI NO SED 07.07.2022
LT SI JOINT INJ NO SED 08/03/23
Ambulatory dysfunction with falls at home
Obesity, BMI 36
Plan
Continue IV heparin drip with eventual transition to NOAC after 48 hours assuming he remains stable
Patient has moderate pulm hypertension with Torres sign seen on transthoracic echo from 09/27/2023,�echo should be repeated in 4-6 weeks
Outpatient hematology evaluation for hypercoagulable workup and assistance regarding duration of systemic AC
Maintain MAP>65
Maintain SpO2 >90-94% with supplemental oxygen; check walking pulse oximetry prior to discharge
Cardiac history reviewed-- HTN/HLD
ECHO reviewed indicating evidence of RHS with moderate PH, no baseline test
No regional WMA and his LVEF is preserved at 55-60%
Unfortunately there is severe calcification of his left main artery, LAD, LCx and right main coronary artery � he should be seen by cardiology to evaluate if further testing is needed at this time given his risk of a coronary ischemic event -->
consult cardiology
No need to continue trending troponin given it peaked at 0.497 on 09/27/2023
Monitor on telemetry, HR improved since heparin IV started
CTA Chest showing large saddle PE, possible LLE DVT as well
PERT called, improving vitals, can hold off on tPA
LA lowe noted
Oxygen needs: on 6L, O2 alvin in 80s on arrival
Prior history of lung disease: none, nonsmoker
Does have risk factors for OSAS, would need OP sleep study
Supplemental O2 as indicated to maintain sats > 89%
CXR/CT reviewed
Diet advancement
LFT somewhat elevated, suspect fatty liver
Aspiration precautions, HOB > 30 degrees
No need for stress ulcer ppx at this time
Creat at baseline, no history of renal disease
Follow urine output, critical I/Os
Replete electrolytes as needed with K>4, Mg>2
No signs/symptoms suspicious for infectious etiology at this time
Observe off antibiotics for now
Follow fever trend, WBC count
CBC stable, no signs of bleeding or coagulopathy.
DVT prophylaxis as assessed based on risk, including mechanical SCDs
Can transfuse if indicated for Hb <7, plt < 20
No prior h/o diabetes or thyroid disease, hyperglycemia noted
Monitor accuchecks PRN/SS coverage if needed
TSH WNL; A1C: 6.2
Pulmonary service will continue to follow along.
Total time spent today was 50 minutes for this encounter. Time includes reviewing laboratory test/imaging results, reviewing pertinent medical records, obtaining and reviewing medical history, performing an appropriate exam, ordering medications,
tests and procedures. Time also includes documentation of this encounter, coordinating patient care and communicating with other healthcare professionals. Total time does not include separately billed tests performed on this date of service.
Diagnostic Data
Chest X-Ray: 09/27/23- 1. Mild cardiomegaly.
2. Grossly clear lungs.
CT Scan: CTA 09/27/23- 1. Large saddle pulmonary embolus, extending into both main, segmental, and subsegmental pulmonary arteries as detailed above.
2. Evidence of right heart strain. RV: LV ratio measures 1.6.
3. Severe coronary arterial calcification. Please correlate with symptoms of and risk factors for coronary artery disease, with further workup as clinically appropriate.
CT Chest 07/06/19- Thoracic aorta is tortuous, but without evidence for aneurysm. No acute CT findings in the chest. Minimal bibasilar partial atelectasis or scarring. Extensive coronary arterial calcifications.
Echo: 09/27/23- Technically difficult study - Lumason used. Dilated and severely hypokinetic right ventricle with Torres's sign seen in apical views. Moderate tricuspid regurgitation. Estimated PASP 48 mmHg with estimated RA 3 mmHg. Normal LV
size and function. No prior study available for comparison. CT scan showed RV strain as well.
Reports and relevant images were personally reviewed.
Subjective Data
-
Date of Service:
Date of Service: September 28, 2023
Chief Complaint: Pulmonary Follow Up and VTE Follow Up
Subjective:
Patient seen this morning. He was laying in bed in no acute distress on 4 L/min nasal cannula breathing comfortably. Currently on a heparin drip. He denies chest pain, headache, fever or chills. Eager to get up out of bed to go to the bathroom.
Review of Systems
General: Other (Negative unless mentioned above)
Objective Data
Data Reviewed
Vital Signs / I&O / Oxygen:
Vital Signs
Temp Pulse Resp BP Pulse Ox
98.1 F 77 13 140/94 96
09/28/23 11:40 09/28/23 10:00 09/28/23 10:00 09/28/23 10:00 09/28/23 10:00
Intake and Output
09/27/23 09/28/23 09/29/23
06:59 06:59 06:59
Intake Total 410 / 410
Output Total 800 / 800 100 / 100
Balance -390 / -390 -100 / -100
SaO2 96
Nasal Cannula flow liters per 6
minute
Physical Exam
General: Respiratory Distress (negative) and Comfortable
HEENT: Normocephalic and Anicteric
Cardiovascular: S1-S2 and Peripheral Edema (negative)
Respiratory: Clear, Wheeze (negative), Crackles (negative), Rhonchi (negative) and Non-Labored Respirations
GI: Soft, Non Distended, Non Tender and Normal Bowel Sounds
Neurology: AO x 3
Skin: Warm, Dry and Cyanosis (negative)
Labs/Micro/Reports
Lab Data
09/28/23 04:30
09/28/23 04:30
Laboratory Results
09/27/23 09/27/23 09/28/23
15:13 23:06 04:30
APTT > 200 H* 76.6 H 80.7 H
--- NOTE | 2023-09-28 15:52 | W.PN.HOSP.TC ---
Today's Communication/Plan
-
Continue anticoagulation
No thrombectomy at this time
Wean oxygen as much as possible
Appreciate pulmonary evaluation and recommendations
Assessment / Plan
Assessment / Plan
Physical Exam
General: No Apparent Distress, Comfortable and Conversant
HEENT: Normocephalic, Moist mucous membranes and Atraumatic
Respiratory: Clear
Cardiac: S1/S2 and RRR
GI: Soft, Non Tender and Normal Bowel Sounds
Musculoskeletal: No Cyanosis and No Edema
Skin: Warm and Dry
Neuro: Awake, Alert and AO x 3
Psych: Calm and Intact Judgment/Insight
Assessment/Plan
Large saddle pulmonary embolus with evidence of right heart strain
Acute Hypoxic Respiratory Failure Secondary to Pulmonary Embolism
Nonocclusive thrombus within the left peroneal and posterior tibial veins
-He is now down to 4 L of oxygen but still very short of breath
-Heparin Drip started in the ER with initial bolus; continue Heparin Drip DVT/PE protocol
-Monitor in IMU
-Continue oxygen supplementation to maintain SpO2 saturations >90%
-IV fluids if becomes hemodynamically unstable
-IR is holding off on thrombectomy given the more peripheral nature of his clot -- if symptoms worsen can consider catheter directed thrombolysis with tPA at that time
-Pulmonary consulted, recommendations appreciated
-Case management consulted for Eliquis pricing: the cost is $86.30/month at [facility] -- patient and his are okay with this. Will need Free Month Eliquis Card on discharge.
Severe coronary arterial calcification
-Follow-up outpatient
Hypertension
-Continue home Lisinopril
Hyperlipidemia
-Continue home Lipitor 40 mg daily
LLE neuropathy
Vitamin B12 deficiency (as per patient)
-Patient says he sees a neurologist outpatient for this
-Continue home Vitamin B12
DVT PPx: Heparin Drip
Code Status: Full Code
Saddle Pulmonary Embolism needing IMU admission, and Heparin Drip, is a high-risk encounter.
Anticipated Discharge: 24 - 48 hours
Subjective/Interval History
-
Date of Service: September 28, 2023
Patient was seen and examined. He reported that he still gets short of breath when getting up out of bed. He denied chest pain or any other new symptoms or complaints.
Objective Data
-
Labs:
Laboratory Results
09/28/23
04:30
WBC 10.2
Hgb 16.4
Hct 47.5
Plt Count 145
APTT 80.7 H
Sodium 135
Potassium 4.4
Chloride 104
Carbon Dioxide 26
BUN 18
Creatinine 0.6 L
Glucose 102 H
Calcium 8.8
Vital Signs:
Vital Signs
Temp Pulse Resp BP Pulse Ox
98.1 F 83 28 140/97 91
09/28/23 11:40 09/28/23 14:00 09/28/23 14:00 09/28/23 14:00 09/28/23 14:00
I&O
09/27/23 09/28/23 09/29/23
06:59 06:59 06:59
Intake Total 410 / 410
Output Total 800 / 800 100 / 100
Balance -390 / -390 -100 / -100
--- NOTE | 2023-09-28 20:25 | PTCARENOTE ---
Received pt from gregg MCCULLOUGH. Heparin gtt @ 1500 units/hr. Pt on 4L NC O2 sat 91%, lungs clear. Pt is laying comfortable in bed with call cintron in reach.
[2023-09-29] VITALS (12 sets, daily range): BP systolic 125–153; BP diastolic 70–113; BMI 35.7
[2023-09-29 05:45] LABS: % Basophils 0.5 % (0-2); % Immature Granulocytes 0.8 % (0-0.5); % Lymphocytes 26.3 % (20.5-51.1); % Monocytes 8.5 % (1.7-9.3); % Neutrophils 61.9 % (42.2-75.2); Absolute Basophils 0.1 10^3/uL (0-0.2); Absolute Eosinophils 0.2 10^3/uL (0-0.7); Absolute Immature Granulocytes 0.1 10^3/uL (0-0.05); Absolute Lymphocytes 2.5 10^3/uL (1.2-3.4); Absolute Monocytes 0.8 10^3/uL (0.1-0.6); Hematocrit 50.1 % (39.0-52.0); Hemoglobin 16.7 g/dL (13.0-18.0); Mean Corp Hgb Conc. 33.3 g/dL (33.0-37.0); Mean Corpuscular Hgb 33.3 pg (27.0-31.0); Mean Corpuscular Volume 99.8 fL (80.0-94.0); Mean Platelet Volume 10.7 fL (7.4-10.4); Nucleated Red Blood Cells % 0 % (-); Platelet Count 139 10^3/uL (130-400); Red Blood Cell Count 5.02 10^6/uL (4.70-6.10); White Blood Cell Count 9.6 10^3/uL (4.8-10.8)
[2023-09-29 05:48] LABS: APTT 68.6 Sec (23.4-35.0)
[2023-09-29 06:06] LABS: Blood Urea Nitrogen 22 mg/dl (9-20); Calcium 9.2 mg/dl (8.4-10.2); Carbon Dioxide 24 mmol/L (22-30); Chloride 104 mmol/L (98-107); Estimated Creatinine Clearance 102 ml/min; Glucose 103 mg/dl (70-99); Potassium 4.4 mmol/L (3.5-5.1); Sodium 136 mmol/L (135-145); eGFR > 60.00
[2023-09-29] MEDS: HEPARIN 4700 UNITS IV (06:09)
--- NOTE | 2023-09-29 08:04 | PTCARENOTE ---
Assumed care of patient at beginning of this shift with heparin infusing at 1700 units/hr with repeat PTT for 12:00. Patient awake and alert with HR 80s at change of shift rounds. Patient's HR then noted to be 140s with patient in bed eating
breakfast; asymptomatic other than continues tachypnea and ALY. EKG done per protocol but did not capture rate (HR 80s on EKG). Currently NSR with BBB and rate of 87. Dr Issa notified via tiger text.
[2023-09-29] MEDS: ZESTRIL 20 MG PO (08:09)
[2023-09-29] MEDS: LOW STRENGTH ASPIRIN 81 MG PO (08:09)
[2023-09-29] MEDS: LIPITOR 40 MG PO (08:09)
[2023-09-29] MEDS: VITAMIN B-12 1000 MCG PO (08:10)
[2023-09-29] MEDS: THERAGRAN 1 TABLET PO (08:10)
[2023-09-29] MEDS: MOBIC 15 MG PO (08:10)
--- NOTE | 2023-09-29 10:00 | PTCARENOTE ---
Addendum entered by Iesha Claudio RN 09/29/23 10:16:
Patient's BP continues to run high; Dr Issa made aware when on unit to see patient.
Original Note:
Toes on both feet noted to be dark purple and cold; weak pedal pulse. Patient denies pain; has PMH neuropathy of the L foot. He was unsteady when standing at the bedside to void. He states he normally wears a brace on his L leg and worked with PT
prior to admission. Dr Issa made aware; see updated orders.
[2023-09-29] MEDS: HEPARIN 25000 UNITS/250 ML IV (10:59)
--- NOTE | 2023-09-29 11:25 | PN.CDI ---
CDI
- -
CDI:
Physician Documentation Request
Admit Date: 09/27/23 09:56
Dear Doctor Maegan,
Please review the following and provide your response in the progress notes.
Clinical Indicators:
09/26: Pt. admitted with Large saddle pulmonary embolus with evidence of right heart strain
09/27: Production Machine Computer Operator note:'Submassive saddle PE with cor pulmonale
Clarify which of the following accurately represents the acuity of the cor pulmonale. Possible options might include:
Acute
Acute on Chronic
Chronic
Other
Use of terms such as suspected, likely, concern for, or probable (associated with a specific diagnosis that is being evaluated, monitored, or treated as if it exists) are acceptable and can be coded in the inpatient setting, when documented at the
time of discharge.
Thank you,
Aylin Talley RN, BSN
CDI Specialist
Available via [place] text
Please use your independent medical judgment in providing your response.
--- NOTE | 2023-09-29 11:37 | PN.CDI ---
CDI
- -
CDI:
Physician Documentation Request
Admit Date: 09/27/23 09:56
Dear Doctor Fredi,
Please review the following and provide your response in the progress notes.
Clinical Indicators:
09/26: Pt admitted with Large saddle pulmonary embolus with evidence of right heart strain
09/27 Update note: 'RV strain on CT with elevated troponin.'...
Laboratory Tests
09/27/23 09/27/23 09/27/23
08:27 16:17 23:06
Troponin I 0.101 H* 0.497 H* D 0.326 H* D
Based on the above, could you clarify in the progress notes, the appropriate diagnosis, if significant, that supports the above abnormal troponin elevationsand additional evaluation, monitoring and/or treatment rendered:
non-ischemic myocardial injury
Clinically insignificant abnormal lab values
Other (please specify)
Use of terms such as suspected, likely, concern for, or probable (associated with a specific diagnosis that is being evaluated, monitored, or treated as if it exists) are acceptable and can be coded in the inpatient setting, when documented at the
time of discharge.
Thank you,
Aylin Talley RN, BSN
CDI Specialist
Available via [place] Text
Please use your independent medical judgment in providing your response.
[2023-09-29 12:46] LABS: APTT 110.4 Sec (23.4-35.0)
[2023-09-29] MEDS: TYLENOL 1000 MG PO (15:26)
--- NOTE | 2023-09-29 15:38 | CON.VAS ---
Consultation
Consultation Request
Performing Provider: Tomas
Reason for Consultation: DVT/cyanotic toes
Medical History
-
Chief Complaint: Shortness of breath
History of Present Illness:
82-year-old male with past medical history hypertension, hyperlipidemia, vitamin B12 deficiency and left lower extremity neuropathy presented with shortness of breath on 09/27/2023. Patient was admitted for PE/DVT workup workup at that time.
Chest CT: Large saddle pulmonary embolus, extending into both main, segmental, and subsegmental pulmonary arteries as detailed above. Evidence of right heart strain. RV: LV ratio measures 1.6.
DVT study: positive with nonocclusive thrombus within the left peroneal and posterior tibial veins
Patient does admit to a sedentary lifestyle. Denies recent travel, denies history of clotting, denies family history. Denies smoking history.
Today it was noted that the patient had cool/cyanotic toes bilaterally. Vascular consult for this finding. Patient stated bedside this afternoon with Dr. Marin.
ROXY: 1.32/1.13
TBI: 0.84/0.97
Past Medical History
Past Medical History: HTN, Hypercholesterolemia and Other (Peripheral neuropathy, vitamin B12 deficiency)
Past Surgical History: Orthopedic (Carpal Tunnel Syndrome, Left Hip Replacement, Testicle Removal) and Tonsilectomy
Social History
Tobacco: Non-Smoker
Alcohol: Occasional
Drug: None
Family History
Family History: Reviewed & Not Pertinent
Allergies / Home Medications
Allergy/AdvReac Type Severity Reaction Status Date / Time
No Known Allergies Allergy Unverified 09/27/23 14:54
�Medication �Instructions �Recorded �Confirmed �Type
aspirin 81 mg chewable tablet 81 mg PO DAILY Blood Clot 07/10/16 09/27/23 History
Prevention/Tx
lisinopril 20 mg tablet 20 mg PO DAILY Blood Pressure 07/10/16 09/27/23 History
atorvastatin 40 mg tablet (Lipitor) 40 mg PO DAILY High Cholesterol 09/27/23 09/27/23 History
coQ10 (ubiquinol) 100 mg capsule 100 mg PO DAILY Supplement 09/27/23 09/27/23 History
cyanocobalamin (vitamin B-12) 1,000 mcg PO DAILY Supplement 09/27/23 09/27/23 History
1,000 mcg tablet
garlic 300 mg capsule 300 mg PO DAILY Supplement 09/27/23 09/27/23 History
meloxicam 15 mg tablet 15 mg PO DAILY Pain 09/27/23 09/27/23 History
therapeutic multivitamin 1 tab PO DAILY Supplement 09/27/23 09/27/23 History
Review of Systems
-
History Source: Patient
All other systems: Negative unless noted
Constitutional: Reports No Symptoms
EENT: Reports No Symptoms
Respiratory: Reports Trouble Breathing
Cardiac: Reports No Symptoms
Vascular: Denies Leg Pain / Claudication
Abdomen/GI: Reports No Symptoms
: Reports No Symptoms
Musculoskeletal: Reports No Symptoms
Skin: Reports Other (Bilateral toes bluish)
Neurological: Reports No Symptoms
Endocrine: Reports No Symptoms
Physical Exam
Vital Signs
Temp Pulse Resp BP Pulse Ox
98.1 F 91 28 141/100 93
09/29/23 11:00 09/29/23 14:00 09/29/23 14:00 09/29/23 14:00 09/29/23 14:00
Lab Results
09/29/23 05:19
09/29/23 05:19
Troponin I Cancelled 09/28/23 21:42
Xqq-J-Frvaycsfmad Pept 128 pg/ml 09/27/23 08:27
Physical Exam
General: No Apparent Distress
HEENT: Normocephalic and Atraumatic
Respiratory: Non Labored Respirations (Mildly labored with speech, on oxygen, satting well)
Cardiac: Negative JVD
GI: Soft, Non Tender and Other (Obese)
Musculoskeletal: No Clubbing, Cyanosis and Edema
Skin: Other (Bilateral toes cool to touch)
Neuro: Awake, Alert and Oriented
Psych: Calm
Pulses: Bilateral Femoral: +2, Bilateral Popliteal: +2, Bilateral Dorsalis Pedis: +1 and Left Posterior Tibial: +1
Assessment / Plan
-
82-year-old male with PE/left peroneal and tibial vein nonocclusive DVT
Cool/cyanotic appearing bilateral toes
Plan:
-Agree with anticoagulation
-Recommend DVT and arterial duplexes and follow-up in 3 months
Data Reviewed
-
Ultrasound: Discussed with Patient
--- NOTE | 2023-09-29 15:51 | W.PN.UPDATE ---
Addendum entered and electronically signed by Edilberto Marin MD 09/29/23 16:19:
Correction to below pulse exam left side - should read '?1+ PT palpable.'
Original Note:
Update Note
Progress Note Update
Seen and examined with CLINICAL LAB ASSISTANT. Full consultation to follow. Briefly 82-year-old male with no prior history of thrombotic disorders, no family history as well. Presented with shortness of breath, found to have saddle PE. Lower extremities were not
assessed earlier. Noted to have slightly cool and somewhat cyanotic appearing left foot today. Patient without any foot complaints at all. DVT study demonstrated left peroneal and posterior tibial vein DVT. In addition due to discoloration,
arterial ROXY/TBI studies were ordered. Patient is without any significant complaints in terms of pain in the feet. Denies any weakness. On exam/he is awake and alert. He is in no acute distress. Breathing is unlabored on nasal cannula oxygen.
Abdomen is soft, ND, NT. Lower extremity with 2+ femoral and popliteal pulses palpable bilaterally. Thighs and calves are soft bilaterally. On the right side unable to palpate distal pulses. On the left side 1+ PT palpable. Feet are slightly
cool bilaterally but equal temperature. Left toes slightly more cyanotic/congested appearing than right side.
Noninvasive studies reviewed. Left peroneal and posterior tibial vein DVT. No more proximal DVT.
Arterial studies demonstrate normal ABIs bilaterally (right 1.32, left 1.13). TBI's within normal limits bilaterally as well.
Plan/slightly cool/cyanotic left foot, right foot also slightly cool. No evidence of arterial insufficiency by noninvasive studies. No need for further workup. Can follow-up with me in the outpatient setting. Follow-up with 3 months ultrasound
of arteries (arterial duplex with ROXY/TBI), as well as venous duplex to ensure no progression of DVT. As far as the DVT, it's a tibial vein DVT. Management would be typically anticoagulation if no contraindication, certainly anticoagulation if
patient symptomatic. Alternatively if no symptoms or pain, consideration for surveillance with serial ultrasound imaging to ensure no propagation. However, patient is on anticoagulation regardless for his PEs. Therefore would continue that
course. He can follow-up with hematology/pulmonary regarding duration of anticoagulation.
--- NOTE | 2023-09-29 16:26 | VNURNOTE ---
Home Health Liaison met with patient at 1530 to discuss [facility] nurse/therapy, visits, schedule and homebound status. Patient is agreeable and understands that visits at home will be 2-3 x per week to assess and teach medical management.
[facility] contact information provided. Patient is aware that [facility] will contact him for start of care in 1-2 days after discharge from .
[facility] referral completed in [facility].
Watching for home O2 needs.
--- NOTE | 2023-09-29 16:34 | W.PN.HOSP.TC ---
Today's Communication/Plan
-
Continue Heparin Drip
Appreciate vascular and pulmonary
Will consult cardiology for the coronary artery calcification
Assessment / Plan
Assessment / Plan
Physical Exam
General: No Apparent Distress, Comfortable and Conversant
HEENT: Normocephalic, Moist mucous membranes and Atraumatic
Respiratory: Clear
Cardiac: S1/S2 and RRR
GI: Soft, Non Tender and Normal Bowel Sounds
Musculoskeletal: No Cyanosis and No Edema
Skin: Warm and Dry
Neuro: Awake, Alert and AO x 3
Psych: Calm and Intact Judgment/Insight
Assessment/Plan
Large saddle pulmonary embolus with evidence of right heart strain with suspected acute cor pulmonale
Acute Hypoxic Respiratory Failure Secondary to Pulmonary Embolism
Nonocclusive thrombus within the left peroneal and posterior tibial veins
-He is now down to 4 L of oxygen but still very short of breath
-Heparin Drip started in the ER with initial bolus; continue Heparin Drip DVT/PE protocol
-Monitor in IMU
-Continue oxygen supplementation to maintain SpO2 saturations >90%
-IV fluids if becomes hemodynamically unstable
-IR is holding off on thrombectomy given the more peripheral nature of his clot -- if symptoms worsen can consider catheter directed thrombolysis with tPA at that time
-Pulmonary consulted, recommendations appreciated
-Case management consulted for [place] pricing: the cost is $86.30/month at [facility] -- patient and his are okay with this. Will need Free Month Eliquis Card on discharge.
-Echo should be repeated in 4-6 weeks
-Outpatient hematology follow-up
-Maintain SpO2 >90-94% with supplemental oxygen
Severe coronary arterial calcification of his left main artery, LAD, LCx and right main coronary artery
Elevated troponin - non-ischemic
-Will consult cardiology
Cool, Blue Toes Bilaterally
-Consulted vascular surgery, recommendations appreciated
-ROXY studies normal
-Follow-up with 3 months ultrasound of arteries (arterial duplex with ROXY/TBI), as well as venous duplex to ensure no progression of DVT.
Hypertension
-Continue home Lisinopril
Hyperlipidemia
-Continue home Lipitor 40 mg daily
LLE neuropathy
Vitamin B12 deficiency (as per patient)
-Patient says he sees a neurologist outpatient for this
-Continue home Vitamin B12
DVT PPx: Heparin Drip
Code Status: Full Code
Saddle Pulmonary Embolism needing monitoring in IMU, and Heparin Drip, is a high-risk encounter.
Anticipated Discharge: 24 - 48 hours
Subjective/Interval History
-
Date of Service: September 29, 2023
Patient was seen and examined. He was still short of breath. His toes and distal feet were cool and bluish in color.
Objective Data
-
Labs:
Laboratory Results
09/29/23 09/29/23 09/29/23
05:19 12:21 18:21
WBC 9.6
Hgb 16.7
Hct 50.1
Plt Count 139
APTT 68.6 H 110.4 H Pending
Sodium 136
Potassium 4.4
Chloride 104
Carbon Dioxide 24
BUN 22 H
Creatinine 0.7
Glucose 103 H
Calcium 9.2
Vital Signs:
Vital Signs
Temp Pulse Resp BP Pulse Ox
98.1 F 91 28 141/100 93
09/29/23 11:00 09/29/23 14:00 09/29/23 14:00 09/29/23 14:00 09/29/23 14:00
I&O
09/28/23 09/29/23 09/30/23
06:59 06:59 06:59
Intake Total 410 / 410 210 / 210
Output Total 800 / 800 575 / 575 250 / 250
Balance -390 / -390 -365 / -365 -250 / -250
[2023-09-29 18:42] LABS: APTT 90.7 Sec (23.4-35.0)
--- NOTE | 2023-09-29 19:02 | W.PN.PUL3 ---
Today's Communication / Plan
-
Transition to Eliquis tonight after being on parenteral AC x 48 hrs
Ok to get up OOB but no strenuous activity and he needs to be monitored/assisted as he is a fall risk and uses a walker to ambulate as it is
PT/OT
Outpatient follow-up with hematology for hypercoagulable workup
He will need repeat transthoracic echo in 4-6 weeks to follow-up cor pulmonale changes to resolution
Pulmonary service will continue to follow along while he remains inpatient
Assessment
-
Patient is an 82-year-old male with previous history of hypertension, hyperlipidemia presenting to ER with shortness of breath since earlier this a.m. he had noticed left lower extremity swelling as well. On arrival to ER, he was notably
hypoxemic, 85% on room air placed on [address] chest demonstrating large saddle PE with evidence of right heart strain. PERT alert was called, patient appears more comfortable with improving vital signs. Decision made to maintain IV
heparin without tPA, observation tonight. Admitted to ICU.
Impression:
Submassive saddle PE with cor pulmonale, provoked likely/sedentary behavior
Left foot cyanosis
Evidence of RHS with moderate PH
Acute hypoxic respiratory failure
Mild leukocytosis - resolved
Left lower extremity distal DVT (peroneal and PT veins)
Hyperglycemia - resolved
Severe consultation and multiple coronary arteries seen on CTA chest, involving LM, LAD, LCx and right sided coronary arteries
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
Hyperlipidemia
HTN
Arthritis
B/L Carpal tunnel release
Hip replacement(1999)
Tonsillectomy
Cataracts 08/2021
Bilateral S1 TFESI 02/08/2022
LT S1 TFESI NO SED 07.07.2022
LT SI JOINT INJ NO SED 08/03/23
Ambulatory dysfunction with falls at home
Obesity, BMI 36
Plan
Okay to change IV heparin tonight to Eliquis given he has been on parenteral systemic anticoagulation for >48 hours
Patient has moderate pulm hypertension with Torres sign seen on transthoracic echo from 09/27/2023 � echo should be repeated in 4-6 weeks
Outpatient hematology evaluation for hypercoagulable workup and assistance regarding duration of systemic AC
Maintain MAP>65
Maintain SpO2 >90-94% with supplemental oxygen; check walking pulse oximetry prior to discharge
Cardiac history reviewed-- HTN/HLD
ECHO reviewed indicating evidence of RHS with moderate PH, no baseline test
No regional WMA and his LVEF is preserved at 55-60%
Unfortunately there is severe calcification of his left main artery, LAD, LCx and right main coronary artery � he should be seen by cardiology to evaluate if further testing is needed at this time given his risk of a coronary ischemic event -->
consult cardiology
No need to continue trending troponin given it peaked at 0.497 on 09/27/2023
Monitor on telemetry, HR improved since heparin IV started
CTA Chest showing large saddle PE, possible LLE DVT as well
PERT called, improving vitals, can hold off on tPA
LA lowe noted
Oxygen needs: on 6L, O2 alvin in 80s on arrival
Prior history of lung disease: none, nonsmoker
Does have risk factors for OSAS, would need OP sleep study
Supplemental O2 as indicated to maintain sats > 89%
CXR/CT reviewed
Vascular surgery consulted due to cyanotic appearing left foot today that was cool to touch. Noninvasive studies showed no evidence of arterial insufficiency. No additional workup needed at this time � follow-up with vascular surgery as an
outpatient
LFT somewhat elevated, suspect fatty liver
Aspiration precautions, HOB > 30 degrees
No need for stress ulcer ppx at this time
Creat at baseline, no history of renal disease
Follow urine output, critical I/Os
Replete electrolytes as needed with K>4, Mg>2
No signs/symptoms suspicious for infectious etiology at this time
Observe off antibiotics for now
Follow fever trend, WBC count
CBC stable, no signs of bleeding or coagulopathy.
Continue systemic AC
Can transfuse if indicated for Hb <7, plt < 20
No prior h/o diabetes or thyroid disease, hyperglycemia noted
Monitor accuchecks PRN/SS coverage if needed - goal BG >100 and <180mg/dL
TSH WNL; A1C: 6.2
Pulmonary service will continue to follow along.
Total time spent today was 35 minutes for this encounter. Time includes reviewing laboratory test/imaging results, reviewing pertinent medical records, obtaining and reviewing medical history, performing an appropriate exam, ordering medications,
tests and procedures. Time also includes documentation of this encounter, coordinating patient care and communicating with other healthcare professionals. Total time does not include separately billed tests performed on this date of service.
Diagnostic Data
ROXY 09-29-2023: ROXY on the right is 1.32, perhaps falsely elevated. TBI within normal limits on the right at 0.84. ROXY on the left within normal limits at 1.13. TBI within normal limits at 0.97.
Chest X-Ray: 09/27/23- 1. Mild cardiomegaly.
2. Grossly clear lungs.
CT Scan: CTA 09/27/23- . Large saddle pulmonary embolus, extending into both main, segmental, and subsegmental pulmonary arteries as detailed above.
2. Evidence of right heart strain. RV: LV ratio measures 1.6.
3. Severe coronary arterial calcification. Please correlate with symptoms of and risk factors for coronary artery disease, with further workup as clinically appropriate.
CT Chest 07/06/19- Thoracic aorta is tortuous, but without evidence for aneurysm. No acute CT findings in the chest. Minimal bibasilar partial atelectasis or scarring. Extensive coronary arterial calcifications.
Echo: 09/27/23- Technically difficult study - Lumason used. Dilated and severely hypokinetic right ventricle with Torres's sign seen in apical views. Moderate tricuspid regurgitation. Estimated PASP 48 mmHg with estimated RA 3 mmHg. Normal LV
size and function. No prior study available for comparison. CT scan showed RV strain as well.
Reports and relevant images were personally reviewed.
Subjective Data
-
Date of Service:
Date of Service: September 29, 2023
Chief Complaint: Pulmonary Follow Up and VTE Follow Up
Subjective:
Patient seen and evaluated today at bedside. Left foot was more mottled/blue this morning and felt cool. Vascular surgery consulted. When I saw the patient this this afternoon, he was on 3 L per nasal cannula, he denies any pain in his feet, is
unsure how his feet normally look compared to now, and denies any chest pain shortness of breath. He remains on heparin drip this morning.
Review of Systems
General: Other (Negative unless mentioned above)
Objective Data
Data Reviewed
Vital Signs / I&O / Oxygen:
Vital Signs
Temp Pulse Resp BP Pulse Ox
98.1 F 91 28 141/100 93
09/29/23 11:00 09/29/23 14:00 09/29/23 14:00 09/29/23 14:00 09/29/23 14:00
Intake and Output
09/28/23 09/29/23 09/30/23
06:59 06:59 06:59
Intake Total 410 / 410 210 / 210
Output Total 800 / 800 575 / 575 250 / 250
Balance -390 / -390 -365 / -365 -250 / -250
SaO2 93
Nasal Cannula flow liters per 3
minute
Physical Exam
General: Respiratory Distress (negative) and Comfortable
HEENT: Normocephalic and Anicteric
Cardiovascular: S1-S2 and Peripheral Edema (negative)
Respiratory: Clear, Wheeze (negative), Crackles (negative), Rhonchi (negative) and Non-Labored Respirations
GI: Soft, Non Distended, Non Tender and Normal Bowel Sounds
Neurology: AO x 3
Skin: Warm (In all extremities except for the left foot/distal left lower extremity + right foot (left foot is cooler than his right foot)), Dry and Cyanosis (Mildly seen in the left foot)
Labs/Micro/Reports
Lab Data
09/29/23 05:19
09/29/23 05:19
Laboratory Results
09/29/23 09/29/23 09/29/23
05:19 12:21 18:24
APTT 68.6 H 110.4 H 90.7 H
[2023-09-29] MEDS: ELIQUIS 10 MG PO (19:35)
--- NOTE | 2023-09-29 19:48 | PTCARENOTE ---
Eliquis given and hep gtt stopped per orders and conversation with Dr Brink
--- NOTE | 2023-09-29 22:03 | PTCARENOTE ---
weaned to room air- nsr- bp wnl
[2023-09-29] MEDS: MELATONIN 5 MG PO (23:30)
[2023-09-29] MEDS: TYLENOL 650 MG PO (23:30)
[2023-09-30] VITALS (9 sets, daily range): BP systolic 126–167; BP diastolic 73–113; PULSE 85; O2SAT 93; BMI 35.7
[2023-09-30 05:34] LABS: % Basophils 0.5 % (0-2); % Eosinophils 1.8 % (0-6); % Immature Granulocytes 0.6 % (0-0.5); % Monocytes 7.9 % (1.7-9.3); % Neutrophils 67.2 % (42.2-75.2); Absolute Basophils 0.1 10^3/uL (0-0.2); Absolute Eosinophils 0.2 10^3/uL (0-0.7); Absolute Immature Granulocytes 0.1 10^3/uL (0-0.05); Absolute Lymphocytes 2.1 10^3/uL (1.2-3.4); Absolute Monocytes 0.7 10^3/uL (0.1-0.6); Absolute Neutrophils 6.3 10^3/uL (1.4-6.5); Hematocrit 46.1 % (39.0-52.0); Mean Corp Hgb Conc. 34.7 g/dL (33.0-37.0); Mean Corpuscular Hgb 33.3 pg (27.0-31.0); Mean Platelet Volume 10.7 fL (7.4-10.4); Nucleated Red Blood Cells % 0 % (-); Platelet Count 138 10^3/uL (130-400); Red Cell Dist. Width 13.8 % (11.5-14.5); White Blood Cell Count 9.3 10^3/uL (4.8-10.8)
[2023-09-30 06:00] LABS: Blood Urea Nitrogen 25 mg/dl (9-20); Calcium 9.3 mg/dl (8.4-10.2); Carbon Dioxide 25 mmol/L (22-30); Chloride 103 mmol/L (98-107); Estimated Creatinine Clearance 119 ml/min; Glucose 104 mg/dl (70-99); Potassium 4.4 mmol/L (3.5-5.1); Sodium 136 mmol/L (135-145); eGFR > 60.00
--- NOTE | 2023-09-30 07:57 | PTCARENOTE ---
Pt is AAOx3 awaiting breakfast, offering no complaints at this time. Receiving Eliquis at this time . Pt on RA no distress noted
[2023-09-30] MEDS: LOW STRENGTH ASPIRIN 81 MG PO (08:31)
[2023-09-30] MEDS: MOBIC 15 MG PO (08:31)
[2023-09-30] MEDS: THERAGRAN 1 TABLET PO (08:31)
[2023-09-30] MEDS: VITAMIN B-12 1000 MCG PO (08:31)
[2023-09-30] MEDS: ZESTRIL 20 MG PO (08:31)
[2023-09-30] MEDS: ELIQUIS 10 MG PO (08:31)
[2023-09-30] MEDS: LIPITOR 40 MG PO (08:31)
--- NOTE | 2023-09-30 09:02 | W.PN.PUL3 ---
Today's Communication / Plan
-
Doing well post transition to OAC
Remains stable on RA, home O2 eval normal
Discussed outpatient pulmonary FU
Discharge planning per team
Assessment
-
Patient is an 82-year-old male with previous history of hypertension, hyperlipidemia presenting to ER with shortness of breath since earlier this a.m. he had noticed left lower extremity swelling as well. On arrival to ER, he was notably
hypoxemic, 85% on room air placed on [address] chest demonstrating large saddle PE with evidence of right heart strain. PERT alert was called, patient appears more comfortable with improving vital signs. Decision made to maintain IV
heparin without tPA, observation tonight. Admitted to ICU.
Impression:
Submassive saddle PE with cor pulmonale, provoked likely/sedentary behavior
Left foot cyanosis
Evidence of RHS with moderate PH
Acute hypoxic respiratory failure
Mild leukocytosis - resolved
Left lower extremity distal DVT (peroneal and PT veins)
Hyperglycemia - resolved
Severe consultation and multiple coronary arteries seen on CTA chest, involving LM, LAD, LCx and right sided coronary arteries
Conditions present [employer]
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
Hyperlipidemia
HTN
Arthritis
B/L Carpal tunnel release
Hip replacement(1999)
Tonsillectomy
Cataracts 08/2021
Bilateral S1 TFESI 02/08/2022
LT S1 TFESI NO SED 07.07.2022
LT SI JOINT INJ NO SED 08/03/23
Ambulatory dysfunction with falls at home
Obesity, BMI 36
Plan
Okay to change IV heparin tonight to Eliquis given he has been on parenteral systemic anticoagulation for >48 hours
Patient has moderate pulm hypertension with Torres sign seen on transthoracic echo from 09/27/2023 � echo should be repeated in 4-6 weeks
Outpatient hematology evaluation for hypercoagulable workup and assistance regarding duration of systemic AC
Maintain MAP>65
Maintain SpO2 >90-94% with supplemental oxygen; check walking pulse oximetry prior to discharge--this was ok/no need for o2
Cardiac history reviewed-- HTN/HLD
ECHO reviewed indicating evidence of RHS with moderate PH, no baseline test
No regional WMA and his LVEF is preserved at 55-60%
Unfortunately there is severe calcification of his left main artery, LAD, LCx and right main coronary artery � he should be seen by cardiology to evaluate if further testing is needed at this time given his risk of a coronary ischemic event -->
consult cardiology
No need to continue trending troponin given it peaked at 0.497 on 09/27/2023
Monitor on telemetry, HR improved since heparin IV started
CTA Chest showing large saddle PE, possible LLE DVT as well
PERT called, improving vitals, can hold off on tPA
LA lowe noted
Oxygen needs: on 6L, O2 alvin in 80s on arrival
Prior history of lung disease: none, nonsmoker
Does have risk factors for OSAS, would need OP sleep study
Supplemental O2 as indicated to maintain sats > 89%
CXR/CT reviewed
Vascular surgery consulted due to cyanotic appearing left foot today that was cool to touch. Noninvasive studies showed no evidence of arterial insufficiency. No additional workup needed at this time � follow-up with vascular surgery as an
outpatient
LFT somewhat elevated, suspect fatty liver
Aspiration precautions, HOB > 30 degrees
No need for stress ulcer ppx at this time
Creat at baseline, no history of renal disease
Follow urine output, critical I/Os
Replete electrolytes as needed with K>4, Mg>2
No signs/symptoms suspicious for infectious etiology at this time
Observe off antibiotics for now
Follow fever trend, WBC count
CBC stable, no signs of bleeding or coagulopathy.
Continue systemic AC
Can transfuse if indicated for Hb <7, plt < 20
No prior h/o diabetes or thyroid disease, hyperglycemia noted
Monitor accuchecks PRN/SS coverage if needed - goal BG >100 and <180mg/dL
TSH WNL; A1C: 6.2
Discharge planning per team
Diagnostic Data
ROXY 09-29-2023: ROXY on the right is 1.32, perhaps falsely elevated. TBI within normal limits on the right at 0.84. ROXY on the left within normal limits at 1.13. TBI within normal limits at 0.97.
Chest X-Ray: 09/27/23- 1. Mild cardiomegaly.
2. Grossly clear lungs.
CT Scan: CTA 09/27/23- . Large saddle pulmonary embolus, extending into both main, segmental, and subsegmental pulmonary arteries as detailed above.
2. Evidence of right heart strain. RV: LV ratio measures 1.6.
3. Severe coronary arterial calcification. Please correlate with symptoms of and risk factors for coronary artery disease, with further workup as clinically appropriate.
CT Chest 07/06/19- Thoracic aorta is tortuous, but without evidence for aneurysm. No acute CT findings in the chest. Minimal bibasilar partial atelectasis or scarring. Extensive coronary arterial calcifications.
Echo: 09/27/23- Technically difficult study - Lumason used. Dilated and severely hypokinetic right ventricle with Torres's sign seen in apical views. Moderate tricuspid regurgitation. Estimated PASP 48 mmHg with estimated RA 3 mmHg. Normal LV
size and function. No prior study available for comparison. CT scan showed RV strain as well.
Reports and relevant images were personally reviewed.
Subjective Data
-
Date of Service:
Date of Service: September 30, 2023
Chief Complaint: Pulmonary Follow Up and VTE Follow Up
Subjective:
doing well, on room air
sitting in chair
home o2 eval showing no need for o2
Objective Data
Data Reviewed
Vital Signs / I&O / Oxygen:
Vital Signs
Temp Pulse Resp BP Pulse Ox
97.6 F 86 25 150/93 94
09/30/23 03:44 09/30/23 08:31 09/30/23 08:00 09/30/23 08:31 09/30/23 08:00
Intake and Output
09/29/23 09/30/23 10/01/23
06:59 06:59 06:59
Intake Total 210 / 210 440 / 440
Output Total 575 / 575 750 / 750 150 / 150
Balance -365 / -365 -310 / -310 -150 / -150
SaO2 94
Nasal Cannula flow liters per 3
minute
Physical Exam
General: Respiratory Distress (negative), Comfortable and Good Appetite
HEENT: Normocephalic, Anicteric and Moist Mucous Membranes
Cardiovascular: S1-S2 and Peripheral Edema (negative)
Respiratory: Clear, Wheeze (negative), Crackles (negative), Rhonchi (negative) and Non-Labored Respirations
GI: Soft, Non Distended, Non Tender and Normal Bowel Sounds
Neurology: Awake, Alert, Oriented and AO x 3
Skin: Warm (In all extremities except for the left foot/distal left lower extremity + right foot (left foot is cooler than his right foot)), Dry and Cyanosis (Mildly seen in the left foot)
Labs/Micro/Reports
Lab Data
09/30/23 05:08
09/30/23 05:08
Laboratory Results
09/29/23 09/29/23
12:21 18:24
APTT 110.4 H 90.7 H
--- NOTE | 2023-09-30 10:13 | W.PN.HOSP.TC ---
Today's Communication/Plan
-
Discharge today
Assessment / Plan
Assessment / Plan
Physical Exam
General: No Apparent Distress, Comfortable and Conversant
HEENT: Normocephalic, Moist mucous membranes and Atraumatic
Respiratory: Clear. NOW ON ROOM AIR -- NO LONGER NEEDING OXYGEN.
Cardiac: S1/S2 and RRR
GI: Soft, Non Tender and Normal Bowel Sounds
Musculoskeletal: No Cyanosis and No Edema
Skin: Warm and Dry
Neuro: Awake, Alert and AO x 3
Psych: Calm and Intact Judgment/Insight
Assessment/Plan
Large saddle pulmonary embolus with evidence of right heart strain with suspected acute cor pulmonale
Acute Hypoxic Respiratory Failure Secondary to Pulmonary Embolism
Nonocclusive thrombus within the left peroneal and posterior tibial veins
-He is now on room air.
-Heparin Drip started in the ER with initial bolus -- now transitioned to Eliquis 10 mg BID (first dose on September 29, 2023 evening) x7 days, followed by Eliquis 5 mg BID
-Continue oxygen supplementation to maintain SpO2 saturations >90%
-IV fluids if becomes hemodynamically unstable
-IR is holding off on thrombectomy given the more peripheral nature of his clot -- if symptoms worsen can consider catheter directed thrombolysis with tPA at that time
-Pulmonary consulted, recommendations appreciated
-Case management consulted for Eliquis pricing: the cost is $86.30/month at [facility] -- patient and his are okay with this. Will need Free Month Eliquis Card on discharge.
-Echo should be repeated in 4-6 weeks
-Outpatient hematology follow-up for hypercoagulable workup and assistance regarding duration of systemic AC
-Maintain SpO2 >90-94% with supplemental oxygen -- no need for home oxygen based on home oxygen assessment test
Severe coronary arterial calcification of his left main artery, LAD, LCx and right main coronary artery
Non-ischemic myocardial injury
-Asking cardiology about inpatient vs. outpatient workup
-Continue Aspirin and Atorvastatin
-Follow-up with cardiology outpatient
Cool, Blue Toes Bilaterally
-Consulted vascular surgery, recommendations appreciated
-ROXY studies normal
-Follow-up with vascular surgeon Dr. Marin in 1-2 months
-Follow-up with 3 months ultrasound of arteries (arterial duplex with ROXY/TBI), as well as venous duplex to ensure no progression of DVT.
Hypertension
-Continue home Lisinopril
Hyperlipidemia
-Continue home Lipitor 40 mg daily
LLE neuropathy
Vitamin B12 deficiency (as per patient)
-Patient says he sees a neurologist outpatient for this
-Continue home Vitamin B12
DVT PPx: Heparin Drip
Code Status: Full Code
More than 30 minutes spent in discharge including
Final examination of the patient
Summarizing hospital stay
Instructions for continuing care to all relevant caregivers
Preparation of discharge records, prescriptions, and referral forms
Total time spent (in minutes): 40
Anticipated Discharge: Today
Subjective/Interval History
-
Date of Service: September 30, 2023
Patient was seen and examined. He denied any chest pain or significant shortness of breath, he would like to go home today.
Objective Data
-
Labs:
Laboratory Results
09/30/23
05:08
WBC 9.3
Hgb 16.0
Hct 46.1
Plt Count 138
Sodium 136
Potassium 4.4
Chloride 103
Carbon Dioxide 25
BUN 25 H
Creatinine 0.6 L
Glucose 104 H
Calcium 9.3
Vital Signs:
Vital Signs
Temp Pulse Resp BP Pulse Ox
97.6 F 86 25 150/93 93
09/30/23 03:44 09/30/23 08:31 09/30/23 08:00 09/30/23 08:31 09/30/23 09:00
I&O
09/29/23 09/30/23 10/01/23
06:59 06:59 06:59
Intake Total 210 / 210 440 / 440
Output Total 575 / 575 750 / 750 150 / 150
Balance -365 / -365 -310 / -310 -150 / -150
--- NOTE | 2023-09-30 13:52 | CON.CAR ---
Consultation
Consultation Request
Date/Time Consultation Requested: 09/30/23 1p
Date/Time Consultation Performed: 09/30/23 1:30p
Requesting Provider: Dr. Issa
Performing Provider: DORCAS Ahmadi for Dr. Angel
Reason for Consultation: coronary calcifications on chest CT
Medical History
-
Chief Complaint: SOB
History of Present Illness:
Mr. Adorno is an 82 yo male with HTN, HLD, and left leg neuropathy with balance issues, who presents to the ER 09/27/23 with c/o acute SOB. Chest CT showed a large saddle PE extending into both main, segmental and subsegmental pulmonary arteries,
right heart strain and severe coronary arterial calcification. He is admitted to the hospitalist service with pulmonary following for PE. He is on Eliquis for PE. We are consulted for severe coronary arterial calcification on chest CT. He denies
any cardiac symptoms presently and prior to hospitalization.
Past Medical History
Past Medical History: Other (as above)
Past Surgical History: Other (as above)
Social History
Tobacco: Non-Smoker
Alcohol: Occasional (3-4 drinks a week)
Personal:
Living: With Family
Employment: Retired
Family History
Family History: Reviewed & Not Pertinent
Allergies / Home Medications
Allergy/AdvReac Type Severity Reaction Status Date / Time
No Known Allergies Allergy Unverified 09/27/23 14:54
�Medication �Instructions �Recorded �Confirmed �Type
aspirin 81 mg chewable tablet 81 mg PO DAILY Blood Clot 07/10/16 09/27/23 History
Prevention/Tx
lisinopril 20 mg tablet 20 mg PO DAILY Blood Pressure 07/10/16 09/27/23 History
atorvastatin 40 mg tablet (Lipitor) 40 mg PO DAILY High Cholesterol 09/27/23 09/27/23 History
coQ10 (ubiquinol) 100 mg capsule 100 mg PO DAILY Supplement 09/27/23 09/27/23 History
cyanocobalamin (vitamin B-12) 1,000 mcg PO DAILY Supplement 09/27/23 09/27/23 History
1,000 mcg tablet
garlic 300 mg capsule 300 mg PO DAILY Supplement 09/27/23 09/27/23 History
meloxicam 15 mg tablet 15 mg PO DAILY Pain 09/27/23 09/27/23 History
therapeutic multivitamin 1 tab PO DAILY Supplement 09/27/23 09/27/23 History
Review of Systems
-
History Source: Patient
All other systems: Negative unless noted
Physical Exam
Vital Signs
Temp Pulse Resp BP Pulse Ox
97.6 F 86 25 150/93 93
09/30/23 03:44 09/30/23 08:31 09/30/23 08:00 09/30/23 08:31 09/30/23 09:00
Lab Results
09/30/23 05:08
09/30/23 05:08
Troponin I Cancelled 09/28/23 21:42
[id number] Pept 128 pg/ml 09/27/23 08:27
Physical Exam
General: Well Developed, Well Nourished and No Apparent Distress
HEENT: Normocephalic and Moist Mucous Membranes
Respiratory: Clear
Cardiac: S1/S2 and Regular Rhythm
Breast: Deferred by me
GI: Soft, Non Tender and Normal Bowel Sounds
Rectal: Deferred by Provider
Genito-urinary: No Costovertebral Tender
Musculoskeletal: No Clubbing, No Cyanosis and No Edema
Skin: Warm and Dry
Neuro: AO x 3
Hematologic/Lymphatic: No Lymphadenopathy
Psych: Calm
Impression / Plan
-
Severe coronary arterial calcification - noted on chest CT.
- he denies any cardiac symptoms.
- already taking ASA, Lipitor and now on Eliquis for PE and nonocclusive DVT.
- echo with normal LVEF and no RWMA.
- continue medical therapy and will see him in the office as an outpatient.
Acute non-ischemic myocardial injury - peak troponin 0.497.
- in the setting of acute SOB with large saddle PE.
- denies chest pain.
- EKG ordered now.
- echo with normal LVEF and no RWMA.
PE - large saddle PE.
- now on Eliquis, management per pulmonary.
HTN - stable on Lisinopril, continue.
HLD - stable on Lipitor, continue.
Data Reviewed
-
CT Scan: Report Reviewed by me (chest ct: Large saddle pulmonary embolus, extending into both main, segmental, and subsegmental pulmonary arteries, right heart strain, severe coronary arterial calcification.)
Medical Tests (Nuc Med, Echo etc): Report Reviewed by me (echo 09/27/23: EF 55-60%, dilated RV, mod TR, PASP 48 mmHg, no RWMA)
Labs: Labs Reviewed by me
Old Records: Reviewed
--- NOTE | 2023-09-30 16:08 | PTCARENOTE ---
Pt ans awaiting dc order
--- NOTE | 2023-09-30 16:35 | CM ---
Patient with Dx Large saddle pulmonary embolus. Home O2 Assessment noted. PT recommends HH.
Met with patient who was preparing for d/c. The patient says he feels ready to go home today. IMM completed. CM provided Free Month Eliquis Card. The patient is aware that [facility] is setup for him. His will provide transport home today.
Plan home today with [facility].
--- NOTE | 2023-09-30 16:43 | W.DS.TRANS ---
DC Summary - [employer]
-
Discharge Instructions:
Discharge Diagnosis/Procedures Large saddle pulmonary embolus with evidence of
right heart strain with suspected acute cor
pulmonale
Acute Hypoxic Respiratory Failure Secondary to
Pulmonary Embolism
Nonocclusive thrombus within the left peroneal
and posterior tibial veins
Severe coronary arterial calcification of his
left main artery, LAD, LCx and right main
coronary artery
Non-ischemic myocardial injury
Cool, Blue Toes Bilaterally
Hypertension
Hyperlipidemia
LLE neuropathy
Vitamin B12 deficiency (as per patient)
Diet 2 Gram Sodium,Low Fat,Low Cholesterol,Low Sodium
Activity Other activity
Additional Activity Okay to get up out of bed, but no strenuous
activity and patient needs to be monitored/
assisted as he is a fall risk and uses a walker
to ambulate.
Others Tests Ultrasound studies: 12/29 @ 2pm and 3pm
Instructions: Pulmonary embolism (blood clot in the lung)
Preventing falls in adults
Apixaban
Pulmonary embolism - Discharge instructions
Stand-Alone Forms:
Changes to Home Medications: Yes
Discharge Medications:
DC Medications w/original date entered in [employer]
aspirin 81 mg chewable tablet 81 mg PO DAILY Blood Clot Prevention/Tx 07/10/16
lisinopril 20 mg tablet 20 mg PO DAILY Blood Pressure 07/10/16
atorvastatin 40 mg tablet (Lipitor) 40 mg PO DAILY High Cholesterol 09/27/23
coQ10 (ubiquinol) 100 mg capsule 100 mg PO DAILY Supplement 09/27/23
cyanocobalamin (vitamin B-12) 1,000 mcg tablet 1,000 mcg PO DAILY Supplement 09/27/23
garlic 300 mg capsule 300 mg PO DAILY Supplement 09/27/23
therapeutic multivitamin 1 tab PO DAILY Supplement 09/27/23
apixaban 5 mg tablet (Eliquis) 5 mg PO BID #60 tabs 09/30/23
apixaban 5 mg tablet (Eliquis) 10 mg (2 x 5 mg) PO BID 6 days #24 tabs 09/30/23
Home Medication Changes
Eliquis is new.
Meloxicam has been stopped.
Pending Results: No
Total time spent discharging patient (in min): 40
--- NOTE | 2023-09-30 16:45 | PTCARENOTE ---
Pt now dc iv removed VS taken at bedside, pt set up for VN
--- NOTE | 2023-09-30 17:08 | PTCARENOTE ---
Pt and left via [facility] and transport pt had his walker
== END 2023-09-30 16:59 | disposition home health service (06) | DRG 175 ==
LOC: IMU 09:56
PROVIDERS: Physician Assistant; ADMITTING PHYSICIAN Hospitalist; CONSULT PHYSICIAN Internal Medicine; CONSULT PHYSICIAN Internal Medicine Cardiovascular Disease; EMERGENCY PHYSICIAN Emergency Medicine; FAMILY PHYSICIAN Internal Medicine Geriatric Medicine; OTHER PHYSICIAN Surgery Vascular Surgery
DX: I26.02 Saddle embolus of pulmonary artery with acute cor pulmonale (principal); J96.01 Acute respiratory failure with hypoxia; J98.11 Atelectasis; I82.532 Chronic embolism and thrombosis of left popliteal vein; I82.552 Chronic embolism and thrombosis of left peroneal vein; I5A Non-ischemic myocardial injury (non-traumatic); I10 Essential (primary) hypertension; E78.00 Pure hypercholesterolemia, unspecified; G57.92 Unspecified mononeuropathy of left lower limb; E53.8 Deficiency of other specified B group vitamins; D72.829 Elevated white blood cell count, unspecified; R73.9 Hyperglycemia, unspecified; M19.90 Unspecified osteoarthritis, unspecified site; K76.0 Fatty (change of) liver, not elsewhere classified; R23.0 Cyanosis; I25.10 Atherosclerotic heart disease of native coronary artery without angina pectoris; E66.9 Obesity, unspecified; I08.1 Rheumatic disorders of both mitral and tricuspid valves; R29.6 Repeated falls; Z96.642 Presence of left artificial hip joint; Z79.82 Long term (current) use of aspirin; Z68.36 Body mass index [BMI] 36.0-36.9, adult; Z91.81 History of falling
CPT/HCPCS: 71045; 71275; 80048; 80053; 83036; 83735; 83880; 84443; 84484; 85025; 85610; 85730; 93005; 93306; 93922; 93970; 96374; 96376; 97163; 99285; Q9950; Q9967

== ENCOUNTER → 2023-12-23 07:17 | Outpatient (REF) | payer MEDICARE, BC, SELFPAY | LOC: RAD 07:17 | PROVIDERS: ATTENDING PHYSICIAN Nurse Practitioner Family; FAMILY PHYSICIAN Internal Medicine Geriatric Medicine | DX: Z86.718 Personal history of other venous thrombosis and embolism (principal); I82.812 Embolism and thrombosis of superficial veins of left lower extremity | CPT/HCPCS: 93971 ==

== ENCOUNTER → 2023-12-26 08:13 | Outpatient (REF) | payer MEDICARE, BC, SELFPAY ==
[2023-12-26 10:22] LABS: Blood Urea Nitrogen 21 mg/dl (9-20)
== END ==
LOC: REG 08:13
PROVIDERS: ATTENDING PHYSICIAN Nurse Practitioner Family
DX: I26.99 Other pulmonary embolism without acute cor pulmonale (principal)
CPT/HCPCS: 36415; 82565; 84520

== ENCOUNTER → 2023-12-28 07:16 | Outpatient (REF) | payer MEDICARE, BC, SELFPAY | LOC: RAD 07:16 | PROVIDERS: ATTENDING PHYSICIAN Nurse Practitioner Family; FAMILY PHYSICIAN Internal Medicine Geriatric Medicine | DX: Z86.711 Personal history of pulmonary embolism (principal) | CPT/HCPCS: 71275; Q9967 ==

== ENCOUNTER → 2023-12-30 13:32 | Outpatient (REF) | payer MEDICARE, BC, SELFPAY | LOC: RAD 13:32 | PROVIDERS: ATTENDING PHYSICIAN Surgery Vascular Surgery; FAMILY PHYSICIAN Internal Medicine Geriatric Medicine | DX: I82.409 Acute embolism and thrombosis of unspecified deep veins of unspecified lower extremity (principal) | CPT/HCPCS: 93922; 93925 ==

== ENCOUNTER → 2024-01-23 06:41 | Outpatient (REF) | payer BC, SELFPAY | LOC: RCS 06:41 | PROVIDERS: ATTENDING PHYSICIAN Internal Medicine Cardiovascular Disease; FAMILY PHYSICIAN Internal Medicine Geriatric Medicine | DX: I26.02 Saddle embolus of pulmonary artery with acute cor pulmonale (principal) | CPT/HCPCS: 93306 ==

== ENCOUNTER 2024-12-21 04:25 | Emergency (ER) | payer BC, SELFPAY ==
[2024-12-21 04:30] VITALS: BP 157/113
[2024-12-21 05:37] VITALS: BMI 37.5
[2024-12-21 05:38] VITALS: BP 127/79
--- NOTE | 2024-12-21 07:21 | ED.GENMED ---
History of Present Illness
General
Chief Complaint: Nose Bleed
Source: patient and spouse
Exam Limitations: none
Time Seen by Provider: 12/21/24 06:53
Nursing documentation reviewed up to this point in time: agreed with
History of Present Illness
History of Present Illness:
Note:
CHIEF COMPLAINT(S)
Epistaxis (nosebleed).
HISTORY OF PRESENT ILLNESS
The patient is an 84-year-old male with a history of atrial fibrillation on apixaban (Eliquis) presenting with a nosebleed. He noted the onset of the nosebleed on the right side, with intermittent overflow to the left side. He expressed difficulty
in stopping the bleeding, describing it as 'awful.' The patient mentioned a previous hematoma episode approximately a year and a half ago. During the examination, numbing medication was applied to the nose, which the patient found to have an unusual
taste but resulted in reduced bleeding. The patient was informed that the nosebleed may lead to stomach irritation if swallowed, though he has not experienced such symptoms. He was advised that taking blood thinners like apixaban can affect
clotting, making nosebleeds more challenging to manage.
CHRONIC MEDICAL CONDITIONS SIGNIFICANTLY AFFECTING CARE
The patient has a known history of atrial fibrillation, for which he is taking apixaban.
PHYSICAL EXAM
General: Alert, no acute distress.
Skin: Warm, dry.
Head: Normocephalic, atraumatic.
Neck: Supple, trachea midline.
Eyes, Ears, Nose, and Throat: Oral mucosa moist. Evidence of epistaxis with blood noted in the nasal passages, primarily from the right side.
Cardiovascular: Normal peripheral perfusion, no edema.
Respiratory: Respirations are non-labored.
Gastrointestinal: Abdomen nondistended.
Back: Normal range of motion, Normal alignment.
Musculoskeletal: Normal ROM, normal strength.
Neurological: Alert and oriented to person, place, time, and situation, no focal neurological deficit observed.
Psychiatric: Cooperative, appropriate mood & affect.
PROBLEM LIST
Acute Problems:
- Epistaxis (Nosebleed).
Chronic Problems:
- Atrial Fibrillation.
PLAN
- Apply nasal packing to control bleeding and monitor.
- Advise the patient to contact the healthcare team if bleeding worsens.
- Consider reviewing anticoagulation therapy balance due to recent bleeding event.
DIFFERENTIAL DIAGNOSIS
The Differential Diagnosis includes, in no particular order and is not limited to:
- Trauma-induced epistaxis
- Anticoagulation-related bleeding
- Nasal polyps
- Hypertension
- Hematologic disorders
- Nasal mucosal dryness
- Coagulopathy
- Allergic rhinitis
- Septal deviation
- Sinusitis
CARE-UPDATE
12/21/24 - 08:45
Treated with topical lidocaine and epinephrine to the right nare. Blood clots expelled from nose; patient denies active bleeding. No sensation of blood running down throat. Silver nitrate cautery applied to right nostril. Advised to withhold Eliquis
for two days. Discharged with instructions to follow up with ENT.
Disposition:
SUMMARY OF ENCOUNTER
The patient, an 84-year-old male with a history of atrial fibrillation, was evaluated in the emergency department for a nosebleed (epistaxis) complicated by the use of anticoagulant therapy (apixaban). He experienced a nosebleed primarily from the
right side with difficulty stopping the bleeding. Management involved the application of nasal packing to control the bleeding. The patient was suspected to experience anticoagulation-related bleeding, and adjustments to his medication regimen were
considered to manage this complication.
DISPOSITION
The patient was discharged with specific instructions and follow-up care.
PLAN
The plan includes the application of nasal packing to control the bleeding and monitoring the patients condition. The patient was advised to contact the healthcare team if the bleeding worsens. He was also instructed to withhold apixaban (Eliquis)
for two days. Follow-up with an Ear, Nose, and Throat specialist is recommended for further evaluation and management.
PATIENT EDUCATION AND COUNSELING
The patient was instructed not to touch or blow his nose and to sneeze with his mouth open to prevent further bleeding. He was informed of the potential risks associated with swallowing blood and possible subsequent stomach irritation.
FOLLOW-UP INSTRUCTIONS
Follow up with an Ear, Nose, and Throat specialist.
MEDICATION RECONCILIATION
The patient is currently on apixaban for atrial fibrillation. He was advised to withhold this anticoagulant for two days due to the recent bleeding event.
MEDICAL DECISION MAKING
1. Number and Complexity of Problems Addressed: Chronic conditions affecting care include atrial fibrillation and the acute problem being epistaxis (nosebleed) exacerbated by anticoagulation use. Differential diagnoses considered included
trauma-induced epistaxis, anticoagulation-related bleeding, nasal polyps, hypertension, hematologic disorders, nasal mucosal dryness, coagulopathy, allergic rhinitis, septal deviation, and sinusitis.
2. Data:
-Category 1:
Consideration of anticoagulation therapy and its impact on bleeding risk. Adjustments to medication were made by withholding apixaban.
3. Risk:
Consideration of Admission/Observation: Escalation of care, including admission/observation, was considered given the complexity and risk of the patients presenting complaint and exam findings. However, ultimately the patient is considered safe for
outpatient management with close follow-up. Reasoning: Work-up reassuring, does not reveal any acute life/organ-threatening processes, patients symptoms were well controlled upon reevaluation, reexamination is reassuring, vitals are stable, the
patient agreed with discharge, and is reliable for follow-up.
DIAGNOSIS
- Epistaxis, unspecified (ICD-10: R04.0)
- Anticoagulation-related bleeding (complication from apixaban therapy) (ICD-10: T45.515A)
Past History
Past History
ED Past Medical History: HTN and Hypercholesterolemia
ED Past Surgical History: Orthopedic (L hip surg), Tonsilectomy and Other (Testicle removed as child)
Social History
Tobacco: Non-smoker
Alcohol: Occasional
Drug: None
Personal:
Living: with family
Employment: Employed
Phy Exam
Physical Exam
Physical Exam:
.
Course
Vital Signs
Initial and Last Documented VS:
Initial Vital Signs
Temp Pulse Resp BP Pulse Ox
98.2 F 115 18 157/113 97
12/21/24 04:30 12/21/24 04:30 12/21/24 04:30 12/21/24 04:30 12/21/24 04:30
Last Documented Vital Signs
Temp Pulse Resp BP Pulse Ox
98.2 F 88 20 127/79 95
12/21/24 04:30 12/21/24 05:38 12/21/24 05:38 12/21/24 05:38 12/21/24 07:21
Procedures
Nosebleed
Drug treatment: Lidocaine and Epinephrine
Treatment: local pressure applied and Silver nitrate cautery
Post treatment bleeding: none- good control
*Pulse Oximetry
SaO2: 95
Oxygen Mode of Delivery: Room air
Patient hypoxic: no
*Critical Care Note
Total Time (30-74mins, 75-104mins- exclusive of procedures): Not Applicable
ED Attending Note
-
Portions of this chart may have been created with voice recognition software.� Occasional wrong word or��sound alike� substitutions may have occurred due to the inherent limitations of voice recognition software.
Discharge Plan
Departure
Patient Disposition: Home (Routine Discharge)
Date of Disposition: 12/21/24
Time of Disposition: 08:58
Patient with high blood pressure during this ER visit?: Yes
Condition: Good
Discharge Problem:
Acute anterior epistaxis
Instructions: Nosebleeds (DC), BLOOD PRESSURE
Prescriptions:
No Action
lisinopril 20 MG tablet
20 mg PO DAILY
aspirin 81 MG tablet,chewable
81 mg PO DAILY
atorvastatin [Lipitor] 40 mg Tablet
40 mg PO DAILY
garlic 300 mg Capsule
300 mg PO DAILY
cyanocobalamin (vitamin B-12) 1,000 mcg Tablet
1,000 mcg PO DAILY
therapeutic multivitamin Tablet
1 tab PO DAILY
coQ10 (ubiquinol) 100 mg Capsule
100 mg PO DAILY
Eliquis 5 mg Tablet
10 mg PO BID 6 Days Qty: 24 0RF
Rx Instructions:
Last dose should be on October 06, 2023 morning
Eliquis 5 mg Tablet
5 mg PO BID Qty: 60 2RF
Rx Instructions:
First dose should be on October 06, 2023 evening
Referrals:
Alex Wolf MD [Active, Otology] - Call in 1-3 days for appt
UNKNOWN - PT DOES,NOT KNOW [Family Provider]
Interventions
Interventions:
*Risk Screen - Suicide Last Done: 12/21/24 04:30
*General Assessment Last Done: 12/21/24 04:30
*Neglect/Abuse Screening Last Done: 12/21/24 04:30
*ED- Fall Risk Assessment Last Done: 12/21/24 04:30
*ED COVID-19 Vaccine History Last Done: 12/21/24 04:30
ED-EENT Assessment Last Done: 12/21/24 05:39
Discharge Date and Time
Print Language: [place]
== END 2024-12-21 09:15 | disposition home or self-care (01) ==
LOC: EMR 04:25
PROVIDERS: EMERGENCY PHYSICIAN Emergency Medicine
DX: R04.0 Epistaxis (principal); I48.91 Unspecified atrial fibrillation; Z79.01 Long term (current) use of anticoagulants; I10 Essential (primary) hypertension; E78.00 Pure hypercholesterolemia, unspecified; Z90.79 Acquired absence of other genital organ(s)
CPT/HCPCS: 99282

== ENCOUNTER → 2025-01-24 07:59 | Outpatient (REF) | payer BC, MEDICARE, SELFPAY | LOC: RAD 07:59 | PROVIDERS: ATTENDING PHYSICIAN Physician Assistant; FAMILY PHYSICIAN Internal Medicine Geriatric Medicine | DX: I73.9 Peripheral vascular disease, unspecified (principal) | CPT/HCPCS: 93922; 93925 ==